=== PATIENT | male | born 1935 | race Caucasian/White ===

== ENCOUNTER → 2016-06-08 | Outpatient (CLI) | payer MEDICARE, OTHER ==
[~2016-06-08] MED LIST: AMLODIPINE BESYL5 MG PO; APRESOLINE25 MG PO; Augmentin Xr 101 TER PO; ELIQUIS2.5 M1 PO; ELIQUIS5 M1 PO; FLOMAX0.4 MG; FOLGARD TABLET1 EACH PO; FOLTANX TABLET1 EACH PO; Hydralazine Hyd25 MG PO; IMDUR SA30 MG PO; ISOSORBIDE DINI30 MG PO; K-TAB10 MEQ PO; LASIX40 MG PO; LEADER ASPIRIN81 MG PO; LEVOTHYROXINE0.05 MG PO; LISINOPRIL20 MG PO; LOPRESSOR50 M1 PO; MULTIPLE VITAMI1 CAP PO; OXYGEN NAS; SYNTHROID,LEVO75 MCG PO; TOPROL XL100 MG PO; Vicodin 5/500 505 MG PO; XALATAN 0.005%2.5 ML; XARE20MG PO; ZOFRAN4 MG PO
== END | disposition home or self-care (01) ==
LOC: RAD 15:26
DX: I50.22 Chronic systolic (congestive) heart failure (principal); I51.7 Cardiomegaly; J44.9 Chronic obstructive pulmonary disease, unspecified; R91.8 Other nonspecific abnormal finding of lung field; Z85.038 Personal history of other malignant neoplasm of large intestine; Z85.118 Personal history of other malignant neoplasm of bronchus and lung

== ENCOUNTER 2016-08-09 09:43 | Emergency (ER) | payer MEDICARE, OTHER ==
[~2016-08-09] VITALS: Ht 182.8 cm; Wt 73.9 kg
== END 2016-08-09 12:10 | disposition home or self-care (01) ==
LOC: ED 09:43
DX: R04.0 Epistaxis (principal); I99.8 Other disorder of circulatory system; I48.92 Unspecified atrial flutter; I48.91 Unspecified atrial fibrillation; Z79.899 Other long term (current) drug therapy

== ENCOUNTER → 2016-08-13 | Outpatient (CLI) | payer MEDICARE, OTHER ==
[2016-08-13 07:51] LABS: BASO % 0.4 % (0.0-1.0); EOS # 0.2 10*3/uL (0.0-0.4); EOS % 4.9 % (1.0-4.0); HEMATOCRIT 32.2 % (42.0-52.0); HEMOGLOBIN 10.3 g/dl (14.0-18.0); LYMPH # 0.8 10*3/uL (1.3-4.4); LYMPH % 16.6 % (27.0-41.0); MEAN CELL VOLUME 95.8 fl (80.0-94.0); MEAN CORPUSCULAR HGB 30.7 pg (27.0-31.0); MEAN PLATELET VOLUME 9.6 fl (9.6-12.3); MONO # 0.5 10*3/uL (0.1-1.0); MONO % 10.5 % (3.0-9.0); NEUT # 3.3 10*3/uL (2.3-7.9); NEUT % 67.2 % (47.0-73.0); PLATELET COUNT AUTOMATED 178 10*3/uL (130-400); RED BLOOD COUNT 3.36 10*6/uL (4.50-5.90); RED CELL DISTRI WIDTH 17.3 % (0-14.5); WHITE BLOOD COUNT 4.9 10*3/uL (4.8-10.8)
[2016-08-13 08:22] LABS: ALBUMIN 2.8 gm/dl (3.1-4.5); BILIRUBIN, TOTAL 0.6 mg/dl (0.2-1.0); POTASSIUM 4.7 mmol/L (3.5-5.1); TOTAL PROTEIN 8.2 gm/dL (6.4-8.2)
== END | disposition home or self-care (01) ==
LOC: LAB 01:00
PROVIDERS: Internal Medicine Hematology & Oncology
DX: C18.9 Malignant neoplasm of colon, unspecified (principal)

== ENCOUNTER → 2016-08-27 | Outpatient (CLI) | payer MEDICARE, OTHER ==
[2016-08-27 07:47] LABS: BASO % 0.6 % (0.0-1.0); EOS # 0.2 10*3/uL (0.0-0.4); EOS % 4.7 % (1.0-4.0); HEMATOCRIT 33.5 % (42.0-52.0); HEMOGLOBIN 10.8 g/dl (14.0-18.0); LYMPH # 0.9 10*3/uL (1.3-4.4); LYMPH % 26.7 % (27.0-41.0); MEAN CELL VOLUME 97.1 fl (80.0-94.0); MEAN CORPUSCULAR HGB 31.3 pg (27.0-31.0); MEAN CORPUSCULAR HGB CONC 32.2 g/dl (33.0-37.0); MEAN PLATELET VOLUME 9.6 fl (9.6-12.3); MONO # 0.3 10*3/uL (0.1-1.0); MONO % 9.5 % (3.0-9.0); NEUT % 58.2 % (47.0-73.0); PLATELET COUNT AUTOMATED 136 10*3/uL (130-400); RED BLOOD COUNT 3.45 10*6/uL (4.50-5.90); RED CELL DISTRI WIDTH 17.6 % (0-14.5); WHITE BLOOD COUNT 3.4 10*3/uL (4.8-10.8)
[2016-08-27 08:16] LABS: ALBUMIN 3.1 gm/dl (3.1-4.5); BILIRUBIN, TOTAL 0.5 mg/dl (0.2-1.0); POTASSIUM 4.4 mmol/L (3.5-5.1); TOTAL PROTEIN 8.3 gm/dL (6.4-8.2)
== END | disposition home or self-care (01) ==
LOC: LAB 03:46
PROVIDERS: Internal Medicine Hematology & Oncology
DX: C18.9 Malignant neoplasm of colon, unspecified (principal)

== ENCOUNTER → 2016-09-10 | Outpatient (CLI) | payer MEDICARE, OTHER ==
[2016-09-10 08:09] LABS: BASO % 0.4 % (0.0-1.0); EOS # 0.2 10*3/uL (0.0-0.4); EOS % 6.8 % (1.0-4.0); HEMATOCRIT 32.4 % (42.0-52.0); HEMOGLOBIN 10.3 g/dl (14.0-18.0); LYMPH # 0.7 10*3/uL (1.3-4.4); LYMPH % 26.5 % (27.0-41.0); MEAN CELL VOLUME 99.1 fl (80.0-94.0); MEAN CORPUSCULAR HGB 31.5 pg (27.0-31.0); MEAN CORPUSCULAR HGB CONC 31.8 g/dl (33.0-37.0); MEAN PLATELET VOLUME 10.3 fl (9.6-12.3); MONO # 0.3 10*3/uL (0.1-1.0); MONO % 9.3 % (3.0-9.0); NEUT # 1.6 10*3/uL (2.3-7.9); PLATELET COUNT AUTOMATED 120 10*3/uL (130-400); RED BLOOD COUNT 3.27 10*6/uL (4.50-5.90); RED CELL DISTRI WIDTH 16.6 % (0-14.5); WHITE BLOOD COUNT 2.8 10*3/uL (4.8-10.8)
[2016-09-10 08:28] LABS: BILIRUBIN, TOTAL 0.4 mg/dl (0.2-1.0); POTASSIUM 4.7 mmol/L (3.5-5.1); TOTAL PROTEIN 7.5 gm/dL (6.4-8.2)
== END | disposition home or self-care (01) ==
LOC: LAB 09-09 08:15
PROVIDERS: Internal Medicine Hematology & Oncology
DX: C18.9 Malignant neoplasm of colon, unspecified (principal)

== ENCOUNTER → 2016-10-29 | Outpatient (CLI) | payer MEDICARE, OTHER ==
[2016-10-29 08:04] LABS: BASO % 0.3 % (0.0-1.0); EOS # 0.2 10*3/uL (0.0-0.4); EOS % 6.1 % (1.0-4.0); HEMATOCRIT 32.7 % (42.0-52.0); HEMOGLOBIN 10.5 g/dl (14.0-18.0); LYMPH % 26.9 % (27.0-41.0); MEAN CELL VOLUME 98.8 fl (80.0-94.0); MEAN CORPUSCULAR HGB 31.7 pg (27.0-31.0); MEAN CORPUSCULAR HGB CONC 32.1 g/dl (33.0-37.0); MEAN PLATELET VOLUME 10.6 fl (9.6-12.3); MONO # 0.4 10*3/uL (0.1-1.0); MONO % 10.3 % (3.0-9.0); NEUT % 56.1 % (47.0-73.0); PLATELET COUNT AUTOMATED 166 10*3/uL (130-400); RED BLOOD COUNT 3.31 10*6/uL (4.50-5.90); RED CELL DISTRI WIDTH 14.9 % (0-14.5); WHITE BLOOD COUNT 3.6 10*3/uL (4.8-10.8)
[2016-10-29 08:30] LABS: ALBUMIN 3.1 gm/dl (3.1-4.5); BILIRUBIN, TOTAL 0.3 mg/dl (0.2-1.0); POTASSIUM 4.5 mmol/L (3.5-5.1); TOTAL PROTEIN 7.2 gm/dL (6.4-8.2)
== END | disposition home or self-care (01) ==
LOC: LAB 00:34
PROVIDERS: Internal Medicine Hematology & Oncology
DX: C18.9 Malignant neoplasm of colon, unspecified (principal)

== ENCOUNTER → 2016-11-12 | Outpatient (CLI) | payer MEDICARE, OTHER ==
[2016-11-12 07:34] LABS: BASO % 0.5 % (0.0-1.0); EOS # 0.3 10*3/uL (0.0-0.4); EOS % 7.1 % (1.0-4.0); HEMATOCRIT 33.1 % (42.0-52.0); HEMOGLOBIN 10.6 g/dl (14.0-18.0); LYMPH % 25.4 % (27.0-41.0); MEAN CELL VOLUME 98.2 fl (80.0-94.0); MEAN CORPUSCULAR HGB 31.5 pg (27.0-31.0); MEAN PLATELET VOLUME 9.8 fl (9.6-12.3); MONO # 0.4 10*3/uL (0.1-1.0); MONO % 9.2 % (3.0-9.0); NEUT # 2.2 10*3/uL (2.3-7.9); NEUT % 57.3 % (47.0-73.0); PLATELET COUNT AUTOMATED 179 10*3/uL (130-400); RED BLOOD COUNT 3.37 10*6/uL (4.50-5.90); RED CELL DISTRI WIDTH 15.5 % (0-14.5); WHITE BLOOD COUNT 3.8 10*3/uL (4.8-10.8)
[2016-11-12 08:09] LABS: ALBUMIN 3.2 gm/dl (3.1-4.5); BILIRUBIN, TOTAL 0.4 mg/dl (0.2-1.0); POTASSIUM 4.7 mmol/L (3.5-5.1); TOTAL PROTEIN 7.1 gm/dL (6.4-8.2)
== END | disposition home or self-care (01) ==
LOC: LAB 02:01
PROVIDERS: Internal Medicine Hematology & Oncology
DX: C18.9 Malignant neoplasm of colon, unspecified (principal)

== ENCOUNTER → 2016-11-26 | Outpatient (CLI) | payer MEDICARE, OTHER ==
[2016-11-26 08:05] LABS: BASO % 0.3 % (0.0-1.0); EOS # 0.3 10*3/uL (0.0-0.4); EOS % 6.7 % (1.0-4.0); HEMATOCRIT 33.5 % (42.0-52.0); HEMOGLOBIN 10.6 g/dl (14.0-18.0); LYMPH # 0.8 10*3/uL (1.3-4.4); LYMPH % 22.3 % (27.0-41.0); MEAN CELL VOLUME 97.7 fl (80.0-94.0); MEAN CORPUSCULAR HGB 30.9 pg (27.0-31.0); MEAN CORPUSCULAR HGB CONC 31.6 g/dl (33.0-37.0); MONO # 0.4 10*3/uL (0.1-1.0); NEUT # 2.2 10*3/uL (2.3-7.9); NEUT % 59.4 % (47.0-73.0); PLATELET COUNT AUTOMATED 194 10*3/uL (130-400); RED BLOOD COUNT 3.43 10*6/uL (4.50-5.90); RED CELL DISTRI WIDTH 15.5 % (0-14.5); WHITE BLOOD COUNT 3.7 10*3/uL (4.8-10.8)
[2016-11-26 08:25] LABS: ALBUMIN 3.1 gm/dl (3.1-4.5); BILIRUBIN, TOTAL 0.4 mg/dl (0.2-1.0); POTASSIUM 4.7 mmol/L (3.5-5.1); TOTAL PROTEIN 7.1 gm/dL (6.4-8.2)
== END | disposition home or self-care (01) ==
LOC: LAB 03:01
PROVIDERS: Internal Medicine Hematology & Oncology
DX: C18.9 Malignant neoplasm of colon, unspecified (principal)

== ENCOUNTER → 2016-12-10 | Outpatient (CLI) | payer MEDICARE, OTHER ==
[2016-12-10 07:36] LABS: BASO % 0.5 % (0.0-1.0); EOS # 0.3 10*3/uL (0.0-0.4); HEMATOCRIT 31.9 % (42.0-52.0); HEMOGLOBIN 10.1 g/dl (14.0-18.0); LYMPH # 0.7 10*3/uL (1.3-4.4); LYMPH % 18.3 % (27.0-41.0); MEAN CELL VOLUME 96.7 fl (80.0-94.0); MEAN CORPUSCULAR HGB 30.6 pg (27.0-31.0); MEAN CORPUSCULAR HGB CONC 31.7 g/dl (33.0-37.0); MEAN PLATELET VOLUME 9.2 fl (9.6-12.3); MONO # 0.4 10*3/uL (0.1-1.0); MONO % 9.7 % (3.0-9.0); NEUT # 2.4 10*3/uL (2.3-7.9); NEUT % 64.2 % (47.0-73.0); PLATELET COUNT AUTOMATED 177 10*3/uL (130-400); RED CELL DISTRI WIDTH 15.4 % (0-14.5); WHITE BLOOD COUNT 3.7 10*3/uL (4.8-10.8)
[2016-12-10 08:05] LABS: ALBUMIN 3.1 gm/dl (3.1-4.5); BILIRUBIN, TOTAL 0.4 mg/dl (0.2-1.0); TOTAL PROTEIN 6.9 gm/dL (6.4-8.2)
== END | disposition home or self-care (01) ==
LOC: LAB 02:10
PROVIDERS: Internal Medicine Hematology & Oncology
DX: C18.9 Malignant neoplasm of colon, unspecified (principal)

== ENCOUNTER → 2017-01-28 | Outpatient (CLI) | payer MEDICARE, OTHER ==
[2017-01-28 07:57] LABS: BASO % 1.1 % (0.0-1.0); EOS # 0.3 10*3/uL (0.0-0.4); EOS % 9.1 % (1.0-4.0); HEMATOCRIT 34.6 % (42.0-52.0); HEMOGLOBIN 10.9 g/dl (14.0-18.0); LYMPH # 0.9 10*3/uL (1.3-4.4); LYMPH % 25.4 % (27.0-41.0); MEAN CELL VOLUME 96.1 fl (80.0-94.0); MEAN CORPUSCULAR HGB 30.3 pg (27.0-31.0); MEAN CORPUSCULAR HGB CONC 31.5 g/dl (33.0-37.0); MEAN PLATELET VOLUME 9.9 fl (9.6-12.3); MONO # 0.5 10*3/uL (0.1-1.0); MONO % 14.6 % (3.0-9.0); NEUT # 1.7 10*3/uL (2.3-7.9); NEUT % 49.5 % (47.0-73.0); PLATELET COUNT AUTOMATED 181 10*3/uL (130-400); RED CELL DISTRI WIDTH 17.7 % (0-14.5); WHITE BLOOD COUNT 3.5 10*3/uL (4.8-10.8)
[2017-01-28 08:24] LABS: ALBUMIN 3.4 gm/dl (3.1-4.5); ALKALINE PHOSPHATASE 128 U/L (45-117); BUN 21 mg/dl (7-24); CHLORIDE 104 mmol/L (98-107); CREATININE 1.24 mg/dL (0.70-1.30); POTASSIUM 4.5 mmol/L (3.5-5.1); SGOT/AST 33 IU/L (3-35); SGPT/ALT 25 U/L (12-78); SODIUM 138 mmol/L (136-145); TOTAL PROTEIN 7.1 gm/dL (6.4-8.2)
== END | disposition home or self-care (01) ==
LOC: LAB 02:41
PROVIDERS: Internal Medicine Hematology & Oncology
DX: C18.9 Malignant neoplasm of colon, unspecified (principal)

== ENCOUNTER → 2017-02-11 | Outpatient (CLI) | payer MEDICARE, OTHER ==
[2017-02-11 07:25] LABS: BASO % 0.6 % (0.0-1.0); EOS # 0.2 10*3/uL (0.0-0.4); EOS % 6.2 % (1.0-4.0); HEMATOCRIT 33.3 % (42.0-52.0); HEMOGLOBIN 10.4 g/dl (14.0-18.0); LYMPH # 0.7 10*3/uL (1.3-4.4); LYMPH % 21.5 % (27.0-41.0); MEAN CELL VOLUME 96.8 fl (80.0-94.0); MEAN CORPUSCULAR HGB 30.2 pg (27.0-31.0); MEAN CORPUSCULAR HGB CONC 31.2 g/dl (33.0-37.0); MEAN PLATELET VOLUME 9.7 fl (9.6-12.3); MONO # 0.2 10*3/uL (0.1-1.0); MONO % 6.2 % (3.0-9.0); NEUT # 2.2 10*3/uL (2.3-7.9); NEUT % 65.2 % (47.0-73.0); PLATELET COUNT AUTOMATED 145 10*3/uL (130-400); RED BLOOD COUNT 3.44 10*6/uL (4.50-5.90); RED CELL DISTRI WIDTH 17.5 % (0-14.5); WHITE BLOOD COUNT 3.4 10*3/uL (4.8-10.8)
[2017-02-11 08:01] LABS: ALBUMIN 3.2 gm/dl (3.1-4.5); ALKALINE PHOSPHATASE 117 U/L (45-117); BUN 22 mg/dl (7-24); CHLORIDE 103 mmol/L (98-107); CREATININE 1.32 mg/dL (0.70-1.30); POTASSIUM 4.5 mmol/L (3.5-5.1); SGOT/AST 25 IU/L (3-35); SGPT/ALT 23 U/L (12-78); SODIUM 136 mmol/L (136-145)
== END | disposition home or self-care (01) ==
LOC: LAB 01:55
PROVIDERS: Internal Medicine Hematology & Oncology
DX: C18.9 Malignant neoplasm of colon, unspecified (principal)

== ENCOUNTER → 2017-02-25 | Outpatient (CLI) | payer MEDICARE, OTHER ==
[2017-02-25 07:30] LABS: BASO % 0.8 % (0.0-1.0); EOS # 0.2 10*3/uL (0.0-0.4); EOS % 4.9 % (1.0-4.0); HEMATOCRIT 31.7 % (42.0-52.0); HEMOGLOBIN 10.3 g/dl (14.0-18.0); LYMPH # 0.9 10*3/uL (1.3-4.4); MEAN CELL VOLUME 96.1 fl (80.0-94.0); MEAN CORPUSCULAR HGB 31.2 pg (27.0-31.0); MEAN CORPUSCULAR HGB CONC 32.5 g/dl (33.0-37.0); MEAN PLATELET VOLUME 9.9 fl (9.6-12.3); MONO # 0.3 10*3/uL (0.1-1.0); MONO % 8.3 % (3.0-9.0); NEUT # 2.5 10*3/uL (2.3-7.9); NEUT % 63.7 % (47.0-73.0); PLATELET COUNT AUTOMATED 161 10*3/uL (130-400); RED CELL DISTRI WIDTH 17.8 % (0-14.5); WHITE BLOOD COUNT 3.9 10*3/uL (4.8-10.8)
[2017-02-25 07:58] LABS: ALBUMIN 3.3 gm/dl (3.1-4.5); ALKALINE PHOSPHATASE 101 U/L (45-117); BUN 22 mg/dl (7-24); CHLORIDE 101 mmol/L (98-107); CREATININE 1.37 mg/dL (0.70-1.30); POTASSIUM 4.3 mmol/L (3.5-5.1); SGOT/AST 24 IU/L (3-35); SGPT/ALT 18 U/L (12-78); SODIUM 135 mmol/L (136-145); TOTAL PROTEIN 6.7 gm/dL (6.4-8.2)
== END | disposition home or self-care (01) ==
LOC: LAB 01:02
PROVIDERS: Internal Medicine Hematology & Oncology
DX: C18.9 Malignant neoplasm of colon, unspecified (principal)

== ENCOUNTER → 2017-03-11 | Outpatient (CLI) | payer MEDICARE, OTHER ==
[2017-03-11 07:54] LABS: BASO % 0.6 % (0.0-1.0); EOS # 0.2 10*3/uL (0.0-0.4); EOS % 5.4 % (1.0-4.0); HEMOGLOBIN 10.5 g/dl (14.0-18.0); LYMPH # 0.7 10*3/uL (1.3-4.4); LYMPH % 21.7 % (27.0-41.0); MEAN CELL VOLUME 95.2 fl (80.0-94.0); MEAN CORPUSCULAR HGB 29.4 pg (27.0-31.0); MEAN CORPUSCULAR HGB CONC 30.9 g/dl (33.0-37.0); MEAN PLATELET VOLUME 10.1 fl (9.6-12.3); MONO # 0.3 10*3/uL (0.1-1.0); NEUT # 2.2 10*3/uL (2.3-7.9); PLATELET COUNT AUTOMATED 168 10*3/uL (130-400); RED BLOOD COUNT 3.57 10*6/uL (4.50-5.90); WHITE BLOOD COUNT 3.4 10*3/uL (4.8-10.8)
== END | disposition home or self-care (01) ==
LOC: LAB 01:02
PROVIDERS: Internal Medicine Hematology & Oncology
DX: C18.9 Malignant neoplasm of colon, unspecified (principal)

== ENCOUNTER → 2017-03-25 | Outpatient (CLI) | payer MEDICARE, OTHER ==
[2017-03-25 08:38] LABS: BASO % 0.6 % (0.0-1.0); EOS # 0.3 10*3/uL (0.0-0.4); HEMATOCRIT 34.4 % (42.0-52.0); HEMOGLOBIN 11.1 g/dl (14.0-18.0); LYMPH % 29.4 % (27.0-41.0); MEAN CELL VOLUME 95.6 fl (80.0-94.0); MEAN CORPUSCULAR HGB 30.8 pg (27.0-31.0); MEAN CORPUSCULAR HGB CONC 32.3 g/dl (33.0-37.0); MEAN PLATELET VOLUME 10.6 fl (9.6-12.3); MONO # 0.3 10*3/uL (0.1-1.0); MONO % 9.6 % (3.0-9.0); NEUT # 1.7 10*3/uL (2.3-7.9); NEUT % 51.8 % (47.0-73.0); PLATELET COUNT AUTOMATED 180 10*3/uL (130-400); RED CELL DISTRI WIDTH 17.5 % (0-14.5); WHITE BLOOD COUNT 3.2 10*3/uL (4.8-10.8)
[2017-03-25 09:09] LABS: ALBUMIN 3.5 gm/dl (3.1-4.5); CREATININE 1.87 mg/dL (0.70-1.30); POTASSIUM 4.6 mmol/L (3.5-5.1)
== END ==
LOC: LAB 00:42
PROVIDERS: Internal Medicine Hematology & Oncology
DX: C18.9 Malignant neoplasm of colon, unspecified (principal)

== ENCOUNTER → 2017-04-22 | Outpatient (CLI) | payer MEDICARE, OTHER ==
[2017-04-22 07:26] LABS: BASO % 0.9 % (0.0-1.0); EOS # 0.5 10*3/uL (0.0-0.4); EOS % 10.3 % (1.0-4.0); HEMOGLOBIN 11.3 g/dl (14.0-18.0); LYMPH # 1.1 10*3/uL (1.3-4.4); LYMPH % 23.1 % (27.0-41.0); MEAN CELL VOLUME 96.2 fl (80.0-94.0); MEAN CORPUSCULAR HGB CONC 32.3 g/dl (33.0-37.0); MEAN PLATELET VOLUME 9.8 fl (9.6-12.3); MONO # 0.6 10*3/uL (0.1-1.0); MONO % 13.8 % (3.0-9.0); NEUT # 2.4 10*3/uL (2.3-7.9); NEUT % 51.7 % (47.0-73.0); PLATELET COUNT AUTOMATED 188 10*3/uL (130-400); RED BLOOD COUNT 3.64 10*6/uL (4.50-5.90); RED CELL DISTRI WIDTH 16.6 % (0-14.5); WHITE BLOOD COUNT 4.6 10*3/uL (4.8-10.8)
[2017-04-22 07:59] LABS: ALBUMIN 3.5 gm/dl (3.1-4.5); CREATININE 1.59 mg/dL (0.70-1.30); POTASSIUM 4.6 mmol/L (3.5-5.1); TOTAL PROTEIN 7.2 gm/dL (6.4-8.2)
== END | disposition home or self-care (01) ==
LOC: LAB 00:43
PROVIDERS: Internal Medicine Hematology & Oncology
DX: C18.9 Malignant neoplasm of colon, unspecified (principal)

== ENCOUNTER → 2017-05-06 | Outpatient (CLI) | payer MEDICARE, OTHER ==
[2017-05-06 08:23] LABS: BASO % 0.7 % (0.0-1.0); EOS # 0.2 10*3/uL (0.0-0.4); HEMATOCRIT 34.4 % (42.0-52.0); LYMPH # 0.9 10*3/uL (1.3-4.4); LYMPH % 21.3 % (27.0-41.0); MEAN CELL VOLUME 96.9 fl (80.0-94.0); MEAN PLATELET VOLUME 10.1 fl (9.6-12.3); MONO # 0.4 10*3/uL (0.1-1.0); NEUT # 2.7 10*3/uL (2.3-7.9); NEUT % 63.8 % (47.0-73.0); PLATELET COUNT AUTOMATED 195 10*3/uL (130-400); RED BLOOD COUNT 3.55 10*6/uL (4.50-5.90); RED CELL DISTRI WIDTH 16.1 % (0-14.5); WHITE BLOOD COUNT 4.2 10*3/uL (4.8-10.8)
== END ==
LOC: LAB 02:33
PROVIDERS: Internal Medicine Hematology & Oncology
DX: C18.9 Malignant neoplasm of colon, unspecified (principal)

== ENCOUNTER → 2017-06-03 | Outpatient (CLI) | payer MEDICARE, OTHER ==
[2017-06-03 07:45] LABS: BASO % 0.3 % (0.0-1.0); EOS # 0.3 10*3/uL (0.0-0.4); HEMATOCRIT 34.1 % (42.0-52.0); HEMOGLOBIN 10.9 g/dl (14.0-18.0); LYMPH # 0.8 10*3/uL (1.3-4.4); LYMPH % 19.8 % (27.0-41.0); MEAN CELL VOLUME 95.8 fl (80.0-94.0); MEAN CORPUSCULAR HGB 30.6 pg (27.0-31.0); MONO # 0.2 10*3/uL (0.1-1.0); MONO % 4.8 % (3.0-9.0); NEUT # 2.7 10*3/uL (2.3-7.9); NEUT % 67.8 % (47.0-73.0); PLATELET COUNT AUTOMATED 166 10*3/uL (130-400); RED BLOOD COUNT 3.56 10*6/uL (4.50-5.90); RED CELL DISTRI WIDTH 15.3 % (0-14.5)
[2017-06-03 08:12] LABS: ALBUMIN 3.2 gm/dl (3.1-4.5); POTASSIUM 4.5 mmol/L (3.5-5.1)
[2017-06-03 08:15] LABS: CREATININE 1.44 mg/dL (0.70-1.30); TOTAL PROTEIN 6.9 gm/dL (6.4-8.2)
== END | disposition home or self-care (01) ==
LOC: LAB 02:13
PROVIDERS: Internal Medicine Hematology & Oncology
DX: C18.9 Malignant neoplasm of colon, unspecified (principal)

== ENCOUNTER → 2017-06-17 | Outpatient (CLI) | payer MEDICARE, OTHER ==
[2017-06-17 07:36] LABS: BASO % 0.5 % (0.0-1.0); EOS # 0.2 10*3/uL (0.0-0.4); EOS % 5.5 % (1.0-4.0); HEMOGLOBIN 10.9 g/dl (14.0-18.0); LYMPH # 0.8 10*3/uL (1.3-4.4); LYMPH % 20.8 % (27.0-41.0); MEAN CELL VOLUME 94.3 fl (80.0-94.0); MEAN CORPUSCULAR HGB 29.4 pg (27.0-31.0); MEAN CORPUSCULAR HGB CONC 31.1 g/dl (33.0-37.0); MEAN PLATELET VOLUME 9.6 fl (9.6-12.3); MONO # 0.4 10*3/uL (0.1-1.0); MONO % 8.8 % (3.0-9.0); NEUT # 2.5 10*3/uL (2.3-7.9); NEUT % 63.6 % (47.0-73.0); PLATELET COUNT AUTOMATED 208 10*3/uL (130-400); RED BLOOD COUNT 3.71 10*6/uL (4.50-5.90); RED CELL DISTRI WIDTH 15.4 % (0-14.5)
[2017-06-17 08:12] LABS: ALBUMIN 3.3 gm/dl (3.1-4.5); CREATININE 1.44 mg/dL (0.70-1.30); POTASSIUM 4.6 mmol/L (3.5-5.1); TOTAL PROTEIN 7.2 gm/dL (6.4-8.2)
== END | disposition home or self-care (01) ==
LOC: LAB 01:00
PROVIDERS: Internal Medicine Hematology & Oncology
DX: C18.9 Malignant neoplasm of colon, unspecified (principal)

== ENCOUNTER → 2017-07-01 | Outpatient (CLI) | payer MEDICARE, OTHER ==
[2017-07-01 08:33] LABS: BASO % 0.5 % (0.0-1.0); EOS # 0.2 10*3/uL (0.0-0.4); EOS % 5.3 % (1.0-4.0); HEMATOCRIT 36.5 % (42.0-52.0); HEMOGLOBIN 11.4 g/dl (14.0-18.0); LYMPH # 0.9 10*3/uL (1.3-4.4); LYMPH % 22.1 % (27.0-41.0); MEAN CELL VOLUME 94.1 fl (80.0-94.0); MEAN CORPUSCULAR HGB 29.4 pg (27.0-31.0); MEAN CORPUSCULAR HGB CONC 31.2 g/dl (33.0-37.0); MEAN PLATELET VOLUME 9.7 fl (9.6-12.3); MONO # 0.4 10*3/uL (0.1-1.0); MONO % 9.2 % (3.0-9.0); NEUT # 2.6 10*3/uL (2.3-7.9); NEUT % 62.7 % (47.0-73.0); PLATELET COUNT AUTOMATED 173 10*3/uL (130-400); RED BLOOD COUNT 3.88 10*6/uL (4.50-5.90); RED CELL DISTRI WIDTH 15.9 % (0-14.5); WHITE BLOOD COUNT 4.1 10*3/uL (4.8-10.8)
[2017-07-01 09:00] LABS: ALBUMIN 3.3 gm/dl (3.1-4.5); CREATININE 1.53 mg/dL (0.70-1.30); POTASSIUM 4.7 mmol/L (3.5-5.1); TOTAL PROTEIN 7.2 gm/dL (6.4-8.2)
== END | disposition home or self-care (01) ==
LOC: LAB 02:22
PROVIDERS: Internal Medicine Hematology & Oncology
DX: C18.9 Malignant neoplasm of colon, unspecified (principal)

== ENCOUNTER → 2017-07-15 | Outpatient (CLI) | payer MEDICARE, OTHER ==
[2017-07-15 07:19] LABS: BASO % 0.6 % (0.0-1.0); EOS # 0.3 10*3/uL (0.0-0.4); EOS % 5.9 % (1.0-4.0); HEMATOCRIT 36.4 % (42.0-52.0); HEMOGLOBIN 11.4 g/dl (14.0-18.0); LYMPH % 19.3 % (27.0-41.0); MEAN CELL VOLUME 93.8 fl (80.0-94.0); MEAN CORPUSCULAR HGB 29.4 pg (27.0-31.0); MEAN CORPUSCULAR HGB CONC 31.3 g/dl (33.0-37.0); MEAN PLATELET VOLUME 9.1 fl (9.6-12.3); MONO # 0.4 10*3/uL (0.1-1.0); NEUT # 3.4 10*3/uL (2.3-7.9); NEUT % 65.8 % (47.0-73.0); PLATELET COUNT AUTOMATED 186 10*3/uL (130-400); RED BLOOD COUNT 3.88 10*6/uL (4.50-5.90); RED CELL DISTRI WIDTH 15.9 % (0-14.5); WHITE BLOOD COUNT 5.1 10*3/uL (4.8-10.8)
== END | disposition home or self-care (01) ==
LOC: LAB 03:36
PROVIDERS: Internal Medicine Hematology & Oncology
DX: C18.9 Malignant neoplasm of colon, unspecified (principal)

== ENCOUNTER → 2017-07-29 | Outpatient (CLI) | payer MEDICARE, OTHER ==
[2017-07-29 07:15] LABS: BASO % 0.4 % (0.0-1.0); EOS # 0.2 10*3/uL (0.0-0.4); EOS % 4.5 % (1.0-4.0); HEMATOCRIT 35.7 % (42.0-52.0); HEMOGLOBIN 11.2 g/dl (14.0-18.0); LYMPH # 0.6 10*3/uL (1.3-4.4); LYMPH % 11.3 % (27.0-41.0); MEAN CORPUSCULAR HGB 29.2 pg (27.0-31.0); MEAN CORPUSCULAR HGB CONC 31.4 g/dl (33.0-37.0); MEAN PLATELET VOLUME 9.5 fl (9.6-12.3); MONO # 0.3 10*3/uL (0.1-1.0); MONO % 5.6 % (3.0-9.0); NEUT % 77.8 % (47.0-73.0); PLATELET COUNT AUTOMATED 189 10*3/uL (130-400); RED BLOOD COUNT 3.84 10*6/uL (4.50-5.90); WHITE BLOOD COUNT 5.1 10*3/uL (4.8-10.8)
[2017-07-29 07:44] LABS: ALBUMIN 3.1 gm/dl (3.1-4.5); ALKALINE PHOSPHATASE 109 U/L (45-117); BUN 20 mg/dl (7-24); CHLORIDE 101 mmol/L (98-107); CREATININE 1.35 mg/dL (0.70-1.30); POTASSIUM 4.6 mmol/L (3.5-5.1); SGOT/AST 20 IU/L (3-35); SGPT/ALT 21 U/L (12-78); SODIUM 137 mmol/L (136-145)
== END | disposition home or self-care (01) ==
LOC: LAB 01:24
PROVIDERS: Internal Medicine Hematology & Oncology
DX: C18.9 Malignant neoplasm of colon, unspecified (principal)

== ENCOUNTER 2017-08-05 19:51 | Inpatient (IN) | payer MEDICARE, OTHER ==
[~2017-08-05] VITALS: Ht 182.8 cm; Wt 81.6 kg
--- NOTE | ~2017-08-05 | PR ---
[place], [place] PROGRESS NOTE NAME: SKYLAR RANDHAWA [facility] #: [id number] UNIT #: [id number] ROOM: 426 DOCTOR: DENI RODRIGUEZ MD,GODWIN BIRTHDATE: [birth year] DOS: 08/07/2017 PULMONARY PROGRESS NOTE SUBJECTIVE: He has been noted comfortable at this time, resting on the bed. Denies any acute shortness of breath. There were no symptoms of coughing, sputum expectoration. Chest pain reported. General weakness and fatigue were noted partially improved. Denies symptoms of hemoptysis, abdominal pain. Denies symptoms of nausea, vomiting, diarrhea, or abdominal pain. Denies symptoms of hematuria. The remaining systems were reviewed. They were noted all negative. OBJECTIVE: VITAL SIGNS: For the patient, which has been recorded showed the temperature was normal, respiratory rate 18, heart rate of 78, blood pressure 137/87. Pulse oxygen saturation on room air is 92%. HEENT: Head was atraumatic. Eyes nonicterus. NECK: Supple. CARDIOVASCULAR: S1, S2 is audible. LUNGS: Decreased breaths are noted mild bilaterally. There were no wheeze or crackle. ABDOMEN: Noted soft. Bowel sounds present. EXTREMITIES: Noted without any acute edema. SKIN: No lesions or rashes. MUSCULOSKELETAL: Without any deformity. CENTRAL NERVOUS SYSTEM: Intact. There were no focal deficits. Cranial nerves 2-12 intact. LABORATORY DATA: CBC this morning, WBC of 3.5, hemoglobin 10.8, hematocrit 30.2, platelet count of 25,000. BMP this morning was noted with sodium of 132, otherwise normal. The CT scan of the chest that I ordered yesterday, was personally reviewed, shows multiple nodules of various sizes noted in the lungs bilaterally as well as a confluent nodule with a mass lesion, and pleural base in the right lower lobe as well. The blood culture on 08/05/2017 showed no bacterial growth. IMPRESSION: 1. General weakness, fatigue. 2. Possibility strongly for the metastatic malignancy advanced with previous known history of rectal cancer is very likely rather than acute infection at this present time. Possible septic emboli has not been noted likely with current solid nodule and known history of malignancy and random distribution. The area of mass lesion in the right lower lobe might be representing as a confluent nodule with malignancy. 3. Leukopenia related to the chemotherapy being administered for the metastatic cancer of the colon. PLAN OF TREATMENT: Based on clinical assessment and negative culture, antibiotic spectrum will be changed. Discontinue the vancomycin, Zosyn and only antibiotic might be considered to be continued as Levaquin. Other supportive [place], [place] PROGRESS NOTE NAME: SKYLAR RANDHAWA UNIT #: [id number] ROOM: 426 DOCTOR: GODWIN HOSKINS MD BIRTHDATE: [birth year] therapy, plan of management, care plan and other treatment and therapies. Overall prognosis is noted extremely poor at this time. Current finding will be discussed with the patient's family members as well. Overall prognosis is considered poor. If the patient's family members would consider further assessment, certainly a CT-guided needle aspiration biopsy of the right lower lung mass could be considered. In the meantime, continue physical therapy outpatient as per the supportive plan of management and care plan. GODWIN CHEEMA MD CM:PNTRANS [id number] GODWIN RODRIGUEZ MD 08/08/17 0544 interface
--- NOTE | ~2017-08-05 | PR ---
[place], [place] PROGRESS NOTE [id number] UN[facility] #: [id number] ROOM: 426 DOCTOR: DENI RODRIGUEZ MD,GODWIN BIRTHDATE: [birth year] DOS: 08/08/2017 SUBJECTIVE: He has been noted comfortable at this time, resting comfortably in the bed, was not reported any symptoms of chest pain or abdominal pain. He was noted small laceration on the bridge of the nose without any active bleeding, some crusted blood was noted. He denies any symptoms of coughing, sputum expectoration, and general weakness nor fatigue was noted. OBJECTIVE: VITAL SIGNS: Normal temperature, respiratory rate 20, heart rate 75, blood pressure 154/91, pulse oxygen saturation on room air 93% saturation. HEENT: Examination shows head was atraumatic. Eyes nonicterus. NECK: Supple. CARDIOVASCULAR: S1, S2 heard in the lung. Decreased breath sounds in the right lower lung. ABDOMEN: Soft and obese. EXTREMITIES: Without any acute edema. LABORATORY DATA: CBC: WBC count 3.0, hemoglobin 10.4, and platelet count were normal. BMP this morning, BUN normal, creatinine normal, and sodium 134. Blood culture, no bacterial growths. IMPRESSION: The patient with a stable respiratory status was noted at the present time with a metastatic malignancy from rectal cancer to the lungs with enlarging and multiple other nodules. PLAN OF TREATMENT: No changes from the pulmonary standpoint. Physical therapy and occupation therapy. Usual care, other supportive plan of management. Leukopenia related chemotherapy managed by Dr. Marie. GODWIN CHEEMA MD CM:PNTRANS 51 GODWIN RODRIGUEZ MD 08/11/17 0847 interface
--- NOTE | ~2017-08-05 | EKG ---
[place], [place] ELECTROCARDIOGRAM REPORT NAME: SKYLAR RANDHAWA UNIT #: [id number] ROOM: 426 DOCTOR: DENI RODRIGUEZ MD,GODWIN BIRTHDATE: [birth year] DOS: 08/05/2017 Electrocardiogram done on 08/05/2017 at 2100 hours. Normal sinus rhythm. Heart rate of 83 beats per minute. There were no changes for ischemia or arrhythmias. EKG considered normal. GODWIN CHEEMA MD CM:EKGRPT:ELECTROCARDIOGRAM REPORT [id number] GODWIN RODRIGUEZ MD
--- NOTE | ~2017-08-05 | CON ---
[place], [place] REPORT OF CONSULTATION NAME: SKYLAR RANDHAWA [facility] #: [id number] UNIT #: [id number] ROOM: 426 DOCTOR: DENI RODRIGUEZ MDGODWIN BIRTHDATE: [birth year] DOS: 08/06/2017 PULMONARY CONSULTATION EVALUATION AND MANAGEMENT CONSULTATION REQUESTED BY: Hospitalist service. REASON FOR CONSULTATION: For assessment of pneumonia. HISTORY OF PRESENT ILLNESS: An 82-year-old white male who has been known with history of metastatic rectal cancer. The patient's different parts of the body including the pulmonary nodules. The patient has been treated with chemotherapy underwent previous surgical intervention at [facility] several years ago. He was brought to the hospital by the family members. The patient did collapse to the floor because of the weakness in lower extremities. The patient stated the symptoms of weakness has been occurring for the past couple of days. He denies symptoms of chest pain. Denies any symptoms of coughing or any sputum expectoration or hemoptysis. REVIEW OF SYSTEMS: CONSTITUTIONAL: Fatigue and tiredness was noted without any symptoms of fever or chills. EYES: Denies any burning, redness, or tenderness. EAR, NOSE, AND THROAT: Denies sore throat, hoarseness, otalgia, postnasal drainage or epistaxis. CARDIOVASCULAR: Denies anginal pain, edema or pain of the lower extremity. GASTROINTESTINAL: No dysphagia, nausea, vomiting, diarrhea, abdominal pain, hematemesis, melena, or hematochezia. SKIN: Denies abnormal lesions or rashes. CENTRAL NERVOUS SYSTEM: Denies dizziness, headache, diplopia, syncopal episodes. Remaining systems were reviewed with the patient, they were noted all negative. PAST MEDICAL HISTORY: 1. The patient was known with history of atrial fibrillation and atrial flutter. 2. 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 3. History of thrombophlebitis and MRSA infection. 4. [id number]-yk-swbwlusl obesity history as well. PAST SURGICAL HISTORY: 1. Bilateral cataract extraction with lens implantation. 2. AP resection of the patient for the cancer of the colon. 2. Removal of the infection thrombophlebitis of left upper extremity. SOCIAL HISTORY: The patient is and lives at home. Denies history of alcohol use, illicit drug use. FAMILY HISTORY: Father at age of 76 years of unknown cancer. Mother [place], [place] REPORT OF CONSULTATION NAME: SKYLAR RANDHAWA UNIT #: [id number] ROOM: 426 DOCTOR: DENI RODRIGUEZ MD,GODWIN BIRTHDATE: [birth year] at age of [age] years old from unknown medical illnesses. CURRENT MEDICATIONS: Administered for the patient was noted as use of levothyroxine, aspirin, gabapentin, Imdur, metoprolol succinate, hydralazine, IV vancomycin, Levaquin and Zosyn. DRUG ALLERGIES: No known drug allergies. PHYSICAL EXAMINATION: GENERAL: An 82-year-old male who has been currently resting comfortably on the bed without any acute distress. Height of 6 feet, weight of 284 pounds, BMI 27.7. VITAL SIGNS: For the patient which has been recorded showed temperature normal since admission respiratory 15-20, heart rate of 78-80, blood pressure 151/83-127/77, pulse oxygen saturation for the patient 3 liters 98% saturation. HEENT: Examination shows head was atraumatic. Eyes nonicterus. NECK: Supple. CARDIOVASCULAR: S1, S2 audible. LUNGS: Without any crackles, rhonchi, or wheezing. Poor air entry of the lung were noted bilaterally. ABDOMEN: Soft with mild obesity. Bowel sounds present without any tenderness. CENTRAL NERVOUS SYSTEM : Cranial nerves 2-12 intact. MUSCULOSKELETAL: Without any acute deformities. SKIN: No abnormal lesions or rashes. LABORATORY DATA: Lactic acid of 08/05/2017 was noted as normal. PT/INR was noted as normal. CBC of the patient on 08/05/2017, WBC count 3.2, hemoglobin 10.6, hematocrit 32.5, platelet count 223,000. CMP on 08/05/2017, BUN 31, creatinine 1.41, glucose 122. Sodium 133. Remaining electrolytes grossly normal. CT scan of the head for the patient without contrast. The patient on 08/05/2017 shows chronic changes without any acute intracranial abnormalities. CBC of the patient this morning WBC count 3.8, hemoglobin 9.4, hematocrit 29, platelet count 185,000. Troponin 3 sets normal yesterday and this morning. BMP today: BUN 30, creatinine 1.32. Sodium 132. The chest x-ray of patient shows evidence of nodular infiltration, which was noted predominantly in the lower portion of the lungs, greater on the right than the left side. There was no pleural fluid. Heart size was noted as normal. IMPRESSION: 1. Metastatic malignancy of the patient, which are noted from the colon cancer currently admitted to the hospital. General weakness, etiology is unclear. 2. Leukopenia for this patient and anemia related to the chemotherapy underlying malignancy as well combination. General weakness for the patient noted. There were no signs of active sepsis or pneumonia early suspected with the clinical history. 3. The patient was also known with past history of atrial fibrillation and atrial flutter as well, which are noted well controlled. PLAN OF MANAGEMENT: The CT scan of the chest will be mandatory for the patient further assessment. After review of the CT scan of the chest, the patient's [place], [place] REPORT OF CONSULTATION NAME: SKYLAR RANDHAWA UNIT #: [id number] ROOM: 426 DOCTOR: GODWIN HOSKINS MD BIRTHDATE: [birth year] antibiotic will be discontinued if the finding was not suggestive of pneumonia. Other supportive therapy, plan of management to be continued as previously. Usual care, other supportive plan of management and care plan. Additional treatment changes will be recommended based on further available new data for this patient in the next few days and during hospitalization. Thank you for allowing me to participate in the care of this patient. GODWIN CHEEMA MD CM:CONSTR:REPORT OF CONSULTATION 1206 08/07/17 0023 interface
--- NOTE | ~2017-08-05 | CON ---
[place], [place] REPORT OF CONSULTATION NAME: SKYLAR RANDHAWA [facility] #: [id number] UNIT #: [id number] ROOM: 426 DOCTOR: MILA CHAVEZ MD BIRTHDATE: [birth year] DOS: 08/08/2017 HISTORY OF PRESENT ILLNESS: The patient is a pleasant 82-year-old gentleman with a history of metastatic colon cancer, presented to the ER because of generalized weakness and fall. As per the patient, he has been feeling progressively worsening weakness over the past couple of days and endoscopy on the day before the admission he felt because of generalized weakness, although he denies any dizziness, lightheadedness, chest pain, palpitation, nausea. Has a history of colon cancer and consulted for further evaluation and management. 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 PAST SURGICAL HISTORY: Cardiac cath, cataract surgery, colostomy, history of varicose veins. SOCIAL HISTORY: No smoking or drinking. Used to drink about 6-8 beers per day. No drug abuse and quit smoking about 40 years ago. FAMILY HISTORY: Father had emphysema secondary to smoking. at age 73 of colon cancer. Mother at 83 of heart disease. ALLERGIES: No allergies. MEDICATIONS: Aspirin, dicyclomine, Neurontin, hydralazine, isosorbide, levothyroxine, Toprol, Zofran. REVIEW OF SYSTEMS CONSTITUTIONAL: No chills. No fatigue. No fever. No loss of appetite. No night sweats. No weakness. No weight loss. HEENT: No trouble swallowing. No loss of smell. No loss of hearing. No double vision. No pain. No discharge. ENT AND RESPIRATORY: No wheeze. No sore throat. No change in voice. No hearing loss. No nose bleed. No cough. No trouble breathing through nose. No shortness of breath. No coughing up blood. No epistaxis. CARDIOVASCULAR: No chest pain. No dizziness. No irregular heartbeat. No leg edema. No pain in legs while walking. No palpitations. No shortness of breath. DERMATOLOGIC: No acne. No hives. No laceration. No mole. No rash. ENDOCRINE: No cold intolerance. No diabetes. No fatigue. No hot flashes. No polydipsia. No polyuria. No urinating frequently. No weight loss. HEMATOLOGIC AND LYMPH: No fatigue. No easy bruising. GASTROENTEROLOGIC: No change in bowel habits. No indigestion. No frequent bloating. No vomiting blood. No abdominal cramping. No nausea. No heartburn. No vomiting. No abdominal pain. No dysphagia. No diarrhea. No constipation. No blood in stool. MALE REPRODUCTIVE: No testicular pain. No difficulty with erection. No [place], [place] REPORT OF CONSULTATION NAME: SKYLAR RANDHAWA UNIT #: [id number] ROOM: 426 DOCTOR: MILA CHAVEZ MD BIRTHDATE: [birth year] diminished sexual drive. No penile discharge. MUSCULOSKELETAL: No back pain. No muscle pain or weakness. No neck pain. No tingling/numbness. No swelling/bruising. No osteoporosis treatment. OPHTHALMOLOGIC: No double vision. No diminished vision. No loss of vision. UROLOGIC: No dysuria. No frequent nighttime urination. No pain with urination. No difficulty urinating. No blood in urine. No frequent urination. No urinary incontinence. NEUROLOGIC: No loss of sensation in specific body area. No vertigo. No burning pain in feet. No trouble with balance. No trouble with coordination. No loss of consciousness. No loss of feeling/power. No confusion. No headache. No tingling/numbness. PSYCHOLOGIC: No tinnitus. No headaches. No shortness of breath. No weight decrease. No nausea. No vomiting. No abdominal discomfort. No constipation. No diarrhea. No depression. No anxiety. PHYSICAL EXAMINATION: GENERAL: Pleasant gentleman in no acute distress. VITAL SIGNS: Stable. He is afebrile. HEENT: Oral mucosa appears intact. The external ears are normal in appearance. Nares are patent without lesions, exudates, erythema, or inflammation. Tongue is symmetrical. Uvula is midline. NECK AND THYROID: Neck supple without palpable masses. Trachea is midline. No thyromegaly. No carotid bruit or JVD. BREASTS: Normal. Nipples unremarkable. No drainage. No lumps felt on either side. HEART: Normal S1, S2, without significant murmur, rub, or gallop. LUNGS: Clear to auscultation and percussion with good air entry bilaterally. The patient is breathing easily without the use of accessory muscles. Diaphragmatic excursions are intact. ABDOMEN: No costovertebral angle tenderness. Soft. No organomegaly or masses. Nontender. No hernias present. Liver and spleen are not palpable. LYMPHATIC: No adenopathy noted in the cervical, supraclavicular, axillary, or inguinal regions. NEUROLOGIC: Nonfocal. Oriented to person, place, and time. MENTAL STATUS: Appropriate for mood and affect. PERIPHERAL PULSES: No varicosities. Femoral and pedal pulses are palpable. EXTREMITIES: Without cyanosis, clubbing, or edema. No gross anomalies. LABORATORY DATA: White count of 3.0, hemoglobin 10.4, hematocrit 31.9, and platelet count 205,000. Glucose of 108, EGFR is 54, sodium 134, potassium 3.8, chloride 99, bicarbonate 29, and calcium 8.1. ASSESSMENT: 1. Metastatic colon cancer. 2. Mild leukopenia, probably secondary to chemotherapy. 3. Anemia of neoplastic disorder. 4. Healthcare-associated pneumonia. 5. Falls. 6. Neutropenia. [place], [place] REPORT OF CONSULTATION NAME: SKYLAR RANDHAWA UNIT #: [id number] ROOM: 426 DOCTOR: MILA CHAVEZ MD BIRTHDATE: [birth year] PLAN: Overall, he is doing much better. He will continue broad spectrum antibiotics. We will keep a close watch at this time. I expect the counts to improve. If not, then further intervention. I had a detailed discussion with the patient about it, seemed to understand it. Ample time was given to the patient to ask me questions. We will follow. Thanks for consulting and letting me participate in the care of this interesting patient. MILA CHAVEZ MD CM:CONSTR:REPORT OF CONSULTATION 0836 08/12/17 0802 interface
[2017-08-05 19:51] VITALS: BP 144/80
[2017-08-05 20:10] VITALS: BP 127/77
[2017-08-05 21:10] LABS: HEMATOCRIT 32.5 % (42.0-52.0); HEMOGLOBIN 10.5 g/dl (14.0-18.0); MEAN CELL VOLUME 88.8 fl (80.0-94.0); MEAN CORPUSCULAR HGB 28.7 pg (27.0-31.0); MEAN CORPUSCULAR HGB CONC 32.3 g/dl (33.0-37.0); MEAN PLATELET VOLUME 9.2 fl (9.6-12.3); PLATELET COUNT AUTOMATED 223 10*3/uL (130-400); RED BLOOD COUNT 3.66 10*6/uL (4.50-5.90); RED CELL DISTRI WIDTH 15.8 % (0-14.5); WHITE BLOOD COUNT 3.2 10*3/uL (4.8-10.8)
[2017-08-05 21:24] LABS: BILIRUBIN NEGATIVE (NEGATIVE); BLOOD NEGATIVE (NEGATIVE); CLARITY CLEAR (CLEAR); COLOR YELLOW (YELLOW); GLUCOSE NEGATIVE (NEGATIVE); KETONE NEGATIVE (NEGATIVE); LEUKO ESTERASE NEGATIVE (NEGATIVE); NITRITE NEGATIVE (NEGATIVE); PH 6.5 (5.0-9.0); UROBILINOGEN 0.2 E.U./dl (0.2-1.0)
[2017-08-05 21:28] LABS: ALBUMIN 2.9 gm/dl (3.1-4.5); ALKALINE PHOSPHATASE 113 U/L (45-117); BUN 31 mg/dl (7-24); CHLORIDE 99 mmol/L (98-107); CREATININE 1.41 mg/dL (0.70-1.30); LIPASE 151 U/L (73-393); POTASSIUM 5.1 mmol/L (3.5-5.1); SGOT/AST 41 IU/L (3-35); SGPT/ALT 33 U/L (12-78); SODIUM 133 mmol/L (136-145); TOTAL PROTEIN 6.7 gm/dL (6.4-8.2)
[2017-08-05 21:30] LABS: TOTAL CELLS COUNTED 100 #CELLS
[2017-08-05 21:31] LABS: PLATELET SUFFICIENCY NORMAL (NORMAL); TROPONIN I < 0.015 ng/ml (<0.045)
[2017-08-05 21:33] LABS: HYALINE CAST 0-2
[2017-08-05 21:34] LABS: BACTERIA TRACE; EPITHELIAL CELLS 0-2; MUCOUS 1+; WBC 0-2 wbc/hpf (0-5)
[2017-08-05 23:00] VITALS: BP 128/79
[2017-08-06 02:55] LABS: BASO % 0.3 % (0.0-1.0); EOS % 0.3 % (1.0-4.0); HEMATOCRIT 29.4 % (42.0-52.0); HEMOGLOBIN 9.4 g/dl (14.0-18.0); LYMPH # 0.5 10*3/uL (1.3-4.4); LYMPH % 16.5 % (27.0-41.0); MEAN CELL VOLUME 90.5 fl (80.0-94.0); MEAN CORPUSCULAR HGB 28.9 pg (27.0-31.0); MEAN PLATELET VOLUME 9.1 fl (9.6-12.3); MONO # 0.1 10*3/uL (0.1-1.0); MONO % 4.6 % (3.0-9.0); NEUT # 2.3 10*3/uL (2.3-7.9); NEUT % 77.3 % (47.0-73.0); PLATELET COUNT AUTOMATED 185 10*3/uL (130-400); RED BLOOD COUNT 3.25 10*6/uL (4.50-5.90); RED CELL DISTRI WIDTH 15.8 % (0-14.5)
[2017-08-06 03:12] LABS: ALBUMIN 2.5 gm/dl (3.1-4.5); BUN 30 mg/dl (7-24); CHLORIDE 96 mmol/L (98-107); CHOLESTEROL 106 mg/dL (<200); CREATININE 1.32 mg/dL (0.70-1.30); PHOSPHOROUS 3.1 mg/dL (2.5-4.9); POTASSIUM 4.5 mmol/L (3.5-5.1); SGOT/AST 27 IU/L (3-35); SGPT/ALT 23 U/L (12-78); SODIUM 134 mmol/L (136-145); TRIGLYCERIDES 45 mg/dl (<150); VLDL CHOLESTEROL 9 mg/dL (6-40)
[2017-08-06 03:13] LABS: ALKALINE PHOSPHATASE 89 U/L (45-117); HDL CHOLESTEROL 55 mg/dl (40-60); LDL CHOLESTEROL 42 mg/dL (9-159); TOTAL PROTEIN 5.7 gm/dL (6.4-8.2)
[2017-08-06 03:16] LABS: FREE T4 1.17 ng/dl (0.76-1.46); THYROID STIM HORMONE (HS) 0.754 uIU/ml (0.358-4.75)
[2017-08-06 07:08] LABS: VITAMIN D, 25-HYDROXY 11.1 ng/mL (30-100)
[2017-08-06 08:00] VITALS: BP 151/83
[2017-08-06] MEDS ORDERED: FOLTANX RF CAP1 EACH PO (09:12)
[2017-08-06] MEDS ORDERED: LEVOTHYROXINE50 MCG PO (09:13)
[2017-08-06] MEDS ORDERED: NEURONTIN300 MG PO (09:15)
[2017-08-06] MEDS ORDERED: DICYCLOMINE HCL10 MG PO (09:17)
[2017-08-06] MEDS ORDERED: ASPIRIN ADULT L81 M1 PO (09:18)
[2017-08-06 12:00] VITALS: BP 147/86
[2017-08-06 20:00] VITALS: BP 148/93
[2017-08-07] VITALS: BP 160/85
[2017-08-07 06:20] LABS: BASO % 0.3 % (0.0-1.0); EOS # 0.1 10*3/uL (0.0-0.4); HEMATOCRIT 33.2 % (42.0-52.0); HEMOGLOBIN 10.8 g/dl (14.0-18.0); LYMPH # 0.6 10*3/uL (1.3-4.4); LYMPH % 15.6 % (27.0-41.0); MEAN CELL VOLUME 90.2 fl (80.0-94.0); MEAN CORPUSCULAR HGB 29.3 pg (27.0-31.0); MEAN CORPUSCULAR HGB CONC 32.5 g/dl (33.0-37.0); MEAN PLATELET VOLUME 9.8 fl (9.6-12.3); MONO # 0.2 10*3/uL (0.1-1.0); MONO % 4.8 % (3.0-9.0); NEUT # 2.6 10*3/uL (2.3-7.9); NEUT % 74.2 % (47.0-73.0); PLATELET COUNT AUTOMATED 205 10*3/uL (130-400); RED BLOOD COUNT 3.68 10*6/uL (4.50-5.90); WHITE BLOOD COUNT 3.5 10*3/uL (4.8-10.8)
[2017-08-07 06:47] LABS: BUN 21 mg/dl (7-24); CHLORIDE 98 mmol/L (98-107); CREATININE 1.28 mg/dL (0.70-1.30); POTASSIUM 4.1 mmol/L (3.5-5.1); SODIUM 132 mmol/L (136-145)
[2017-08-07 07:54] VITALS: BP 137/87
[2017-08-07 16:00] VITALS: BP 108/78
[2017-08-07 20:00] VITALS: BP 141/88
[2017-08-08] VITALS: BP 152/89
[2017-08-08 07:06] LABS: BASO % 0.3 % (0.0-1.0); EOS # 0.2 10*3/uL (0.0-0.4); EOS % 6.6 % (1.0-4.0); HEMATOCRIT 31.9 % (42.0-52.0); HEMOGLOBIN 10.4 g/dl (14.0-18.0); LYMPH # 0.4 10*3/uL (1.3-4.4); LYMPH % 14.5 % (27.0-41.0); MEAN CELL VOLUME 90.4 fl (80.0-94.0); MEAN CORPUSCULAR HGB 29.5 pg (27.0-31.0); MEAN CORPUSCULAR HGB CONC 32.6 g/dl (33.0-37.0); MEAN PLATELET VOLUME 9.8 fl (9.6-12.3); MONO # 0.2 10*3/uL (0.1-1.0); MONO % 6.3 % (3.0-9.0); NEUT # 2.2 10*3/uL (2.3-7.9); NEUT % 71.6 % (47.0-73.0); PLATELET COUNT AUTOMATED 205 10*3/uL (130-400); RED BLOOD COUNT 3.53 10*6/uL (4.50-5.90); RED CELL DISTRI WIDTH 16.5 % (0-14.5)
[2017-08-08 07:29] LABS: BUN 17 mg/dl (7-24); CHLORIDE 99 mmol/L (98-107); CREATININE 1.27 mg/dL (0.70-1.30); POTASSIUM 3.8 mmol/L (3.5-5.1); SODIUM 134 mmol/L (136-145)
[2017-08-08 08:00] VITALS: BP 154/91
[2017-08-08] MEDS ORDERED: LEVAQUIN750 M1 PO (10:11)
[2017-08-08] MEDS ORDERED: Vitamin D PO (10:11)
== END 2017-08-08 11:46 | disposition home or self-care (01) | DRG 177 ==
LOC: ED 19:51 → EDHOLD 22:19 → 4E 22:19
PROVIDERS: Internal Medicine; Physician Assistant
DX: J15.6 Pneumonia due to other Gram-negative bacteria (principal); E43 Unspecified severe protein-calorie malnutrition; D84.9 Immunodeficiency, unspecified; C78.00 Secondary malignant neoplasm of unspecified lung; C78.5 Secondary malignant neoplasm of large intestine and rectum; I48.2 Chronic atrial fibrillation; D70.1 Agranulocytosis secondary to cancer chemotherapy; D70.9 Neutropenia, unspecified; G62.0 Drug-induced polyneuropathy; I48.92 Unspecified atrial flutter; I50.32 Chronic diastolic (congestive) heart failure; E87.1 Hypo-osmolality and hyponatremia; C20 Malignant neoplasm of rectum; D63.0 Anemia in neoplastic disease; D63.8 Anemia in other chronic diseases classified elsewhere; H40.9 Unspecified glaucoma; R74.0 Nonspecific elevation of levels of transaminase and lactic acid dehydrogenase [LDH]; T45.1X5A Adverse effect of antineoplastic and immunosuppressive drugs, initial encounter; R73.9 Hyperglycemia, unspecified; R80.9 Proteinuria, unspecified; N18.3 Chronic kidney disease, stage 3 (moderate); E66.8 Other obesity; R73.03 Prediabetes; E55.9 Vitamin D deficiency, unspecified; I51.7 Cardiomegaly; Z93.3 Colostomy status; Z85.038 Personal history of other malignant neoplasm of large intestine; Z83.6 Family history of other diseases of the respiratory system; Z81.2 Family history of tobacco abuse and dependence; Z80.0 Family history of malignant neoplasm of digestive organs; Y92.89 Other specified places as the place of occurrence of the external cause; Z87.891 Personal history of nicotine dependence; Z82.49 Family history of ischemic heart disease and other diseases of the circulatory system; Z79.899 Other long term (current) drug therapy; Z98.42 Cataract extraction status, left eye; Z98.41 Cataract extraction status, right eye; Z68.27 Body mass index [BMI] 27.0-27.9, adult; W18.39XA Other fall on same level, initial encounter; Y93.89 Activity, other specified; Y99.8 Other external cause status

== ENCOUNTER → 2017-08-26 | Outpatient (CLI) | payer MEDICARE, OTHER ==
[~2017-08-26] MED LIST changes: +ASPIRIN ADULT L81 M1 PO; +DICYCLOMINE HCL10 MG PO; +FOLTANX RF CAP1 EACH PO; +LEVAQUIN750 M1 PO; +LEVOTHYROXINE50 MCG PO; +NEURONTIN300 MG PO; +Vitamin D PO
[2017-08-26 07:52] LABS: EOS # 0.2 10*3/uL (0.0-0.4); EOS % 4.1 % (1.0-4.0); HEMATOCRIT 36.1 % (42.0-52.0); HEMOGLOBIN 11.1 g/dl (14.0-18.0); LYMPH # 0.9 10*3/uL (1.3-4.4); LYMPH % 21.9 % (27.0-41.0); MEAN CELL VOLUME 93.8 fl (80.0-94.0); MEAN CORPUSCULAR HGB 28.8 pg (27.0-31.0); MEAN CORPUSCULAR HGB CONC 30.7 g/dl (33.0-37.0); MEAN PLATELET VOLUME 9.8 fl (9.6-12.3); MONO # 0.3 10*3/uL (0.1-1.0); MONO % 7.7 % (3.0-9.0); NEUT # 2.7 10*3/uL (2.3-7.9); NEUT % 64.8 % (47.0-73.0); PLATELET COUNT AUTOMATED 223 10*3/uL (130-400); RED BLOOD COUNT 3.85 10*6/uL (4.50-5.90); RED CELL DISTRI WIDTH 18.5 % (0-14.5); WHITE BLOOD COUNT 4.2 10*3/uL (4.8-10.8)
[2017-08-26 08:07] LABS: ALBUMIN 3.2 gm/dl (3.1-4.5); CREATININE 1.7 mg/dL (0.70-1.30); POTASSIUM 4.7 mmol/L (3.5-5.1); TOTAL PROTEIN 6.9 gm/dL (6.4-8.2)
== END | disposition home or self-care (01) ==
LOC: LAB 03:26
PROVIDERS: Internal Medicine Hematology & Oncology
DX: C18.9 Malignant neoplasm of colon, unspecified (principal)

== ENCOUNTER 2017-09-02 15:58 | Inpatient (IN) | payer MEDICARE, OTHER ==
[~2017-09-02] VITALS: Ht 182.9 cm; Wt 87.7 kg
[2017-09-02] VITALS (8 sets, daily range): BP systolic 111–144; BP diastolic 83–97
--- NOTE | ~2017-09-02 | PR ---
[place], [place] PROGRESS NOTE NAME: SKYLAR RANDHAWA UNIT #: [id number] ROOM: 419 DOCTOR: GODWIN HOSKINS MD BIRTHDATE: [birth year] DOS: 09/05/2017 SUBJECTIVE: The patient was noted comfortable at this time without any acute distress, has not been reported any symptoms of chest pain. The patient was noted with increased oxygen requirement. The pulse ox saturation noted as 90%, this morning at rest. He had not been noted symptoms of hemoptysis or chest pain or any cough. OBJECTIVE: VITAL SIGNS: The heart rate is ranging between 117-109, blood pressure 98/60 to 133/60. temperature normal, respiratory rate 18-20. HEENT: No acute change. NECK: Supple. CARDIOVASCULAR: S1, S2 audible. LUNGS: Moderate reduction of the breath sounds noted in the lungs bilaterally. There were no crackles or wheezing. Occasional crackles in the mid portion of the lungs. ABDOMEN: Soft, nontender. EXTREMITIES: Without any acute edema. LABORATORY DATA: Chest x-ray 2 views, which was done this morning was reviewed, shows finding of congestive heart failure worsening chest x-ray compared to previous admission x-ray. BMP: BUN 33, creatinine 1.41 today was noted, potassium elevated at 5.7. CBC does count 6.5, hemoglobin 10.6, platelet count were normal. IMPRESSION: 1. Worsening of the congestive heart failure noted an increased oxygen requirement, acute kidney injury interval developed again for this patient as well. History of cancer of the rectum for the patient with metastatic nodule in the lungs. Possibility of lung mass as well along with the metastatic malignant nodules. 2. Pleural fluid. 3. Superimposed congestive heart failure, most likely diastolic dysfunction with history of atrial flutter with intermittent rapid ventricular response. PLAN OF THERAPY: Diuretic therapy would be recommended, medical management by the Cardiology Services noted in progress. Continuation of the other previous therapy, plan of management and care plan. Other supportive therapy plan to be continued previously in progress. [place], [place] PROGRESS NOTE NAME: SKYLAR RANDHAWA UNIT #: [id number] ROOM: 419 DOCTOR: GODWIN HOSKINS MD BIRTHDATE: [birth year] GODWIN CHEEMA MD CM:PNTRANS [id number] GODWIN RODRIGUEZ MD 09/06/17 0054 interface
--- NOTE | ~2017-09-02 | PR ---
[place], [place] PROGRESS NOTE NAME: SKYLAR RANDHAWA UNIT #: [id number] ROOM: 419 DOCTOR: GODWIN HOSKINS MD BIRTHDATE: [birth year] DOS: 09/06/2017 SUBJECTIVE: The patient has been noted with unresponsiveness that lasted for several hours last night as per daughter. Later on, the patient noted to be awake and reactive and communicating. He has been noted with some confusional status as well this morning. He has been getting physical therapy. The patient has not been noted with any symptoms of hemoptysis or any acute chest pain. There were no symptoms of acute shortness of breath reported. OBJECTIVE: VITAL SIGNS: For the patient which has been recorded showed normal temperature, respiratory rate 20, heart rate 90, blood pressure 113/79. The pulse oxygen saturation recorded as 91% saturation 3 L nasal cannula. HEENT: Chronic mild obesity. NECK: Supple. CARDIOVASCULAR: S1, S2 audible. LUNGS: Occasional crackles of the lungs. There is no wheezing. ABDOMEN: Soft, nontender. EXTREMITIES: Without any acute edema. LABORATORY DATA: BMP today: BUN 41, creatinine 1.78. CT scan of the head that was repeated yesterday to assess the unresponsiveness of the patient reported no acute abnormalities. Chest x-ray that was done for the patient this morning was noted with reduction of previous finding of congestive heart failure and pleural effusions. IMPRESSION: 1. Continuation of the current plan of therapy. The patient, however, has been noted with acute kidney injury with increased creatinine at this time, etiology unclear. The pleural fluid certainly was noted decreased and finding of congestive heart failure on chest x-ray. 2. Metastatic cancer from the rectum as well. 3. Unresponsiveness, etiology was unclear. PLAN OF MANAGEMENT: No changes in the plan of therapy, continuation of current therapy, plan of management as previously. Usual care, other supportive and palliative care. [place], [place] PROGRESS NOTE NAME: SKYLAR RANDHAWA UNIT #: [id number] ROOM: 419 DOCTOR: GODWIN HOSKINS MD BIRTHDATE: [birth year] GODWIN CHEEMA MD CM:PNTRANS [id number] GODWIN RODRIGUEZ MD 09/06/17 2322 interface
--- NOTE | ~2017-09-02 | CON ---
[place], [place] REPORT OF CONSULTATION NAME: [facility] [id number] UNIT #: [id number] ROOM: 419 DOCTOR: MILA CHAVEZ MD BIRTHDATE: [birth year] DOS: 09/04/2017 HISTORY OF PRESENT ILLNESS: The patient is a pleasant 82-year-old gentleman with history of metastatic colorectal cancer, presented to the Emergency Department ____ Hospital because of fatigue and confusion. As per the family, he was confused at home. The patient has history of metastatic colon cancer, getting chemotherapy and was consulted for further evaluation and management. PAST MEDICAL HISTORY: Significant for metastatic colorectal cancer, history of anemia of chronic disease, atrial fibrillation, CHF, chronic kidney disease, glaucoma, history of cardioversion, inguinal hernia, left ventricular hypertrophy, neuropathy, and prediabetic. PAST SURGICAL HISTORY: Colon resection, cardiac catheterization, cataract surgery, colonoscopy, colostomy, and varicose veins. SOCIAL HISTORY: Used to drink 6-8 beers per day, quit few years ago. No smoking. Quit smoking 40 years ago. No drug abuse. FAMILY HISTORY: Father at age 73 of colon cancer. Mother at 83 of heart disease. ALLERGIES: No allergies. MEDICATIONS: Aspirin, dicyclomine, gabapentin, hydralazine, isosorbide, ____ levothyroxine, metoprolol, ondansetron, and potassium chloride. REVIEW OF SYSTEMS CONSTITUTIONAL: No chills. No fatigue. No fever. No loss of appetite. No night sweats. No weakness. No weight loss. HEENT: No trouble swallowing. No loss of smell. No loss of hearing. No double vision. No pain. No discharge. ENT AND RESPIRATORY: No wheeze. No sore throat. No change in voice. No hearing loss. No nose bleed. No cough. No trouble breathing through nose. No shortness of breath. No coughing up blood. No epistaxis. CARDIOVASCULAR: No chest pain. No dizziness. No irregular heartbeat. No leg edema. No pain in legs while walking. No palpitations. No shortness of breath. DERMATOLOGIC: No acne. No hives. No laceration. No mole. No rash. ENDOCRINE: No cold intolerance. No diabetes. No fatigue. No hot flashes. No polydipsia. No polyuria. No urinating frequently. No weight loss. HEMATOLOGIC AND LYMPH: No fatigue. No easy bruising. GASTROENTEROLOGIC: No change in bowel habits. No indigestion. No frequent bloating. No vomiting blood. No abdominal cramping. No nausea. No heartburn. No vomiting. No abdominal pain. No dysphagia. No diarrhea. No constipation. No blood in stool. MALE REPRODUCTIVE: No testicular pain. No difficulty with erection. No diminished sexual drive. No penile discharge. MUSCULOSKELETAL: No back pain. No muscle pain or weakness. No neck pain. No tingling/numbness. No swelling/bruising. No osteoporosis treatment. [place], [place] REPORT OF CONSULTATION NAME: SKYLAR RANDHAWA UNIT #: [id number] ROOM: [facility] DOCTOR: MILA CHAVEZ MD BIRTHDATE: [birth year] OPHTHALMOLOGIC: No double vision. No diminished vision. No loss of vision. UROLOGIC: No dysuria. No frequent nighttime urination. No pain with urination. No difficulty urinating. No blood in urine. No frequent urination. No urinary incontinence. NEUROLOGIC: No loss of sensation in specific body area. No vertigo. No burning pain in feet. No trouble with balance. No trouble with coordination. No loss of consciousness. No loss of feeling/power. No confusion. No headache. No tingling/numbness. PSYCHOLOGIC: No tinnitus. No headaches. No shortness of breath. No weight decrease. No nausea. No vomiting. No abdominal discomfort. No constipation. No diarrhea. No depression. No anxiety. PHYSICAL EXAMINATION: GENERAL: Pleasant gentleman in no apparent distress. VITAL SIGNS: Stable. He is afebrile. HEENT: Oral mucosa appears intact. The external ears are normal in appearance. Nares are patent without lesions, exudates, erythema, or inflammation. Tongue is symmetrical. Uvula is midline. NECK AND THYROID: Neck supple without palpable masses. Trachea is midline. No thyromegaly. No carotid bruit or JVD. BREASTS: Normal. Nipples unremarkable. No drainage. No lumps felt on either side. HEART: Normal S1, S2, without significant murmur, rub, or gallop. LUNGS: Clear to auscultation and percussion with good air entry bilaterally. The patient is breathing easily without the use of accessory muscles. Diaphragmatic excursions are intact. ABDOMEN: No costovertebral angle tenderness. Soft. No organomegaly or masses. Nontender. No hernias present. Liver and spleen are not palpable. LYMPHATIC: No adenopathy noted in the cervical, supraclavicular, axillary, or inguinal regions. NEUROLOGIC: Nonfocal. Oriented to person, place, and time. MENTAL STATUS: Appropriate for mood and affect. PERIPHERAL PULSES: No varicosities. Femoral and pedal pulses are palpable. EXTREMITIES: Without cyanosis, clubbing, or edema. No gross anomalies. LABORATORY DATA: White count of 4.3, hemoglobin 10.7, hematocrit 34.9, and platelet count of 166,000. Sodium 131, potassium 6.6, chloride 97, bicarbonate 29, EGFR is 34. ASSESSMENT: 1. Metastatic stage IV colorectal cancer, stable. 2. Anemia of neoplastic disorder. 3. Respiratory insufficiency with hypoxia. 4. Chronic kidney disease. PLAN: Overall, he is doing better. We will keep a close watch at this. Hold chemotherapy for now. Her hemoglobin is stable at this time. If it drops further, then intervention, otherwise continues antibiotics ____. I had a detailed discussion with the patient who seemed to understand. Ample time was given to the patient to ask me questions. We will follow. [place], [place] REPORT OF CONSULTATION NAME: SKYLAR RANDHAWA UNIT #: [id number] ROOM: [facility] DOCTOR: MILA CHAVEZ MD BIRTHDATE: [birth year] Thanks for consulting and letting participate in the care of this interesting patient. MILA CHAVEZ MD CM:CONSTR:REPORT OF CONSULTATION [id number] 09/04/17 9059 interface
--- NOTE | ~2017-09-02 | PR ---
[place], [place] PROGRESS NOTE NAME: SKYLAR RANDHAWA [facility] #: [id number] UNIT #: [id number] ROOM: 419 DOCTOR: MILA CHAVEZ MD BIRTHDATE: [birth year] DOS: 09/06/2017 SUBJECTIVE: The patient is going home. He is alert and responsive. REVIEW OF SYSTEMS HEENT: No trouble swallowing. No double vision. No loss of vision. No pain. ENT AND RESPIRATORY: No wheeze. No change in voice. No cough. No shortness of breath. No coughing up blood. No epistaxis. CARDIOLOGIC: No chest pain. No dizziness. No irregular heartbeat. No leg edema. No palpitations. No shortness of breath. HEMATOLOGIC AND LYMPH: No past transfusion. No fatigue. No loss of appetite. No easy bruising. GASTROENEROLOGIC: No change in bowel habits. No vomiting blood. No abdominal cramping. No nausea. No vomiting. No diarrhea. No constipation. No blood in stool. MALE REPRODUCTIVE: No testicular pain. No penile discharge. MUSCULOSKELETAL: No back pain. No muscle pain or weakness. No tingling/numbness. UROLOGIC: No pain with urination. No difficulty urinating. No frequent urination. NEUROLOGIC: No burning pain in feet. No trouble with coordination. No loss of consciousness. No headache. No tingling/numbness. No memory loss. PHYSICAL EXAMINATION GENERAL: A pleasant gentleman in no apparent distress. VITAL SIGNS: Stable. Afebrile. HEENT: Normocephalic, atraumatic NECK AND THYROID: Supple. No JVD, thyromegaly, or lymphadenopathy. HEART: Normal S1, S2. Regular rate and rhythm. LUNGS: Clear to auscultation and percussion. ABDOMEN: Soft. Nontender, nondistended. Bowel sounds present. EXTREMITIES: Normal ROM. No clubbing. No edema. LABORATORY DATA: Reviewed. ASSESSMENT: 1. Metastatic colon carcinoma. 2. History of atrial fibrillation. 3. Metabolic encephalopathy, which is improved. 4. Respiratory failure, which is improved. PLAN: Overall, he is doing better. He will be going home today and follow as outpatient. His medications were changed, will keep a close watch at this time. Hold chemo for now until his overall condition gets better. [place], [place] PROGRESS NOTE NAME: SKYLAR RANDHAWA [place] UNIT #: [id number] ROOM: 419 DOCTOR: MILA CHAVEZ MD BIRTHDATE: [birth year] MILA CHAVEZ MD CM:ADDI [id number] MILA CHAVEZ MD 09/06/17 225 interface
--- NOTE | ~2017-09-02 | PR ---
[place], [place] PROGRESS NOTE NAME: [facility]AR RANDHAWA [facility] [id number] UNIT #: [id number] ROOM: 419 DOCTOR: DENI RODRIGUEZ MD,GODWIN BIRTHDATE: [birth year] DOS: 09/04/2017 SUBJECTIVE: He has been noted comfortable at this time, sitting on the chair this morning without any acute distress at the time of the assessment. The patient does have minimal cough. Denies symptoms of chest pain or any hemoptysis. OBJECTIVE: VITAL SIGNS: For the patient, which has been recorded showed normal temperature, respiratory rate 20, heart rate 104, blood pressure 105/69-132/98. Pulse oxygen saturation noted 2 liters 95% saturation. HEENT: No acute change. NECK: Supple. CARDIOVASCULAR: S1, S2 audible. LUNGS: Crackles are noted in the lungs. Decreased breaths in the lower portion of the lungs, greater on the right than the left side. ABDOMEN: Soft and obese. EXTREMITIES: Without any acute edema. LABORATORY DATA: BMP today was noted resolution of acute kidney injury, creatinine normal at 1.27. BUN decreased to 30. CBC, WBC count was 3.3, hemoglobin 9.5, hematocrit 31.1, platelet count of 36,000. Blood culture, no bacterial growth. IMPRESSION: The patient with tachycardia, which has been resolving at this time with improving acute kidney injury progressively. Pulmonary abnormality. Metastatic cancer of the rectum. The patient with atrial tachycardia. PLAN OF MANAGEMENT: No changes in the plan of therapy. Continue oxygen supplementation, titrate to maintain saturation 90% or greater. Monitor respiratory status closely. Repeat another chest x-ray tomorrow morning to reassess the pleural fluid. GODWIN CHEEMA MD CM:PNTRANS [id number] GODWIN RODRIGUEZ MD 09/04/172125 interface
--- NOTE | ~2017-09-02 | PR ---
[place], [place] PROGRESS NOTE NAME[id number] UNIT #: [id number] ROOM: 419 DOCTOR: MILA CHAVEZ MD BIRTHDATE: [birth year] DOS: 09/05/2017 SUBJECTIVE: The patient is doing better, awake, alert and responsive. REVIEW OF SYSTEMS HEENT: No trouble swallowing. No double vision. No loss of vision. No pain. ENT AND RESPIRATORY: No wheeze. No change in voice. No cough. No shortness of breath. No coughing up blood. No epistaxis. CARDIOLOGIC: No chest pain. No dizziness. No irregular heartbeat. No leg edema. No palpitations. No shortness of breath. HEMATOLOGIC AND LYMPH: No past transfusion. No fatigue. No loss of appetite. No easy bruising. GASTROENEROLOGIC: No change in bowel habits. No vomiting blood. No abdominal cramping. No nausea. No vomiting. No diarrhea. No constipation. No blood in stool. MALE REPRODUCTIVE: No testicular pain. No penile discharge. MUSCULOSKELETAL: No back pain. No muscle pain or weakness. No tingling/numbness. UROLOGIC: No pain with urination. No difficulty urinating. No frequent urination. NEUROLOGIC: No burning pain in feet. No trouble with coordination. No loss of consciousness. No headache. No tingling/numbness. No memory loss. PHYSICAL EXAMINATION GENERAL: A pleasant gentleman, in no apparent distress. VITAL SIGNS: Blood pressure 106/79, respirations 20, pulse 58, temperature 97.9. HEENT: Normocephalic, atraumatic NECK AND THYROID: Supple. No JVD, thyromegaly, or lymphadenopathy. HEART: Normal S1, S2. Regular rate and rhythm. LUNGS: Clear to auscultation and percussion. ABDOMEN: Soft. Nontender, nondistended. Bowel sounds present. EXTREMITIES: Normal ROM. No clubbing. No edema. LABORATORY DATA: White count 3.5, hemoglobin 10.6, hematocrit 34.9, platelet count of 169,000. Sodium 134, potassium 5.7, chloride 101, calcium 8.1. ASSESSMENT: 1. Metastatic colon cancer. 2. Anemia of neoplastic disorder. 3. Respiratory insufficiency. 4. Dehydration. 5. Leukopenia. PLAN: Overall, he is doing better now. Chemotherapy is on hold. We will wait for his overall condition to improve. If the hemoglobin and hematocrit drops, then further intervention. Now, white count is slightly low. We will keep a close watch. Discussed with the family in detail. [place], [place] PROGRESS NOTE NAME: SKYLAR RANDHAWA UNIT #: [id number] ROOM: [facility] DOCTOR: MILA CHAVEZ MD BIRTHDATE: [birth year] MILA CHAVEZ MD CM:PNTRANS [id number] MILA CHAVEZ MD 09/06/17 0252 interface
--- NOTE | ~2017-09-02 | CON ---
[place], [place] REPORT OF CONSULTATION [id number] UNIT #: [id number] ROOM: 419 DOCTOR: DENI RODRIGUEZ MDGODWIN BIRTHDATE: [birth year] DOS: 09/03/2017 PULMONARY CONSULTATION, EVALUATION AND MANAGEMENT REASON FOR CONSULTATION: Assess the patient's current acute hypoxia, increased respiratory symptoms. HISTORY OF PRESENT ILLNESS: This is an 82-year-old white male who has been noted with history of advanced cancer of the rectum for this patient, which was noted with pulmonary metastasis, has been recently admitted to the hospital, treated and discharged home for the patient for respiratory problem. The patient did develop symptoms of significant changes in mental status prior to admission to the hospital. He was also noted significant severe oxygen desaturation with oxygen saturation in the Emergency recorded 74%. The patient was also noted with symptoms of acute kidney injury. He does have symptoms of shortness of breath that occurs with exertion. He denies symptoms of coughing, chest pain or hemoptysis. The patient denies symptoms of chest trauma. He has been sitting this morning at the time of the assessment on the chair. His mentation has improved significantly as compared to the admission of yesterday. REVIEW OF SYSTEMS: CONSTITUTIONAL: Fatigue and tiredness reported without any symptoms of fever or chills. EYES: Denies any burning, redness, or tenderness. EARS, NOSE, THROAT SYMPTOMS: Denies sore throat, hoarseness, otalgia, postnasal drainage or epistaxis. CARDIOVASCULAR: Denies any edema of the lower extremities or palpitations or angina pain. GASTROINTESTINAL: Denies dysphagia, nausea, vomiting, diarrhea, abdominal pain, hematemesis, melena, or hematochezia. GENITOURINARY: There were no reported symptoms of dysuria, suprapubic pain, or urinary incontinence. MUSCULOSKELETAL: There were no joint pain reported without any deformities. CENTRAL NERVOUS SYSTEM: There were symptoms of dizziness, headache, or diplopia. Remaining systems were reviewed, they were noted all negative. Past medical history, surgical history, social history, and family history are reviewed with the patient since consultation on 08/06/2017 and remains essentially unchanged. Please review the consultation of the patient for any records assessment of my consultation on 08/06/2017, which is available in the [facility] at the present time for further review. CURRENT MEDICATIONS: Administered noted use of Lovenox 30 mg for DVT prophylaxis, metoprolol tartrate, vitamin D, aspirin, dicyclomine, gabapentin, levothyroxine, Imdur, hydralazine, Vicodin and Restoril. DRUG ALLERGIES: Noted for no known drug allergies. [place], [place] REPORT OF CONSULTATION NAME: SKYLAR RANDHAWA UNIT #: [id number] ROOM: 419 DOCTOR: DENI RODRIGUEZ MD,GODWIN BIRTHDATE: [birth year] PHYSICAL EXAMINATION: GENERAL: An 82-year-old white male who has been currently noted sitting on the chair without any acute distress or disorientation or change in mental status. Height was noted 6 feet, weight of 195 pounds, BMI 26.5. VITAL SIGNS: For the patient which were recorded showed the temperature noted as normal, respiratory rate 20-22, heart rate of 122-107 with atrial flutter. The blood pressure of the patient ranged between 140/95-129/83. Intake for the patient since admission 920 mL, output 850 mL, 930 mL, negative fluid output. The pulse oxygen saturation at 76% on room air on admission 3-1/2 liters nasal cannula with 100% saturation recorded this afternoon. HEENT: Examination shows head was atraumatic. Eyes nonicterus. NECK: Supple. CARDIOVASCULAR: S1, S2 audible. LUNGS: The patient was noted without any wheezing. Crackles noted scattered in the mid portion of the lungs. ABDOMEN: Soft, nontender. Bowel sounds present. EXTREMITIES: Without any acute edema. MUSCULOSKELETAL: The patient without any acute deformities. SKIN: Visible. No lesions or rashes. CENTRAL NERVOUS SYSTEM: The patient grossly nonfocal. Cranial nerves 2-12 for the patient was noted essentially intact. LABORATORY DATA: Labs on this patient. The CBC that was done yesterday, WBC count 4.3, hemoglobin 10.7, hematocrit 34.9, platelet count 166,000. Lactic acid noted normal at 1.2. PT/PTT were noted as normal yesterday. CMP of the patient yesterday admission, BUN 46, creatinine 1.89. Potassium 6.6. Sodium 131. CBC this morning, hemoglobin 9.8, hematocrit 32.0. WBC count decreased to 3.3. CMP this morning, BUN 40, creatinine 1.56. Potassium decreased to 5.5. Chest x-ray of the patient shows basilar area of infiltration or mass-like lesion in the lower lung for the patient, which appeared to be increased as compared to previous chest x-ray assessment and comparison during his admission in 07/2017. CT scan of the chest for the patient was noted with numerous bilateral pulmonary nodule was noted for the patient with mass lesion was noted the largest in the right lower lobe appeared to be progressive in size. It was noted with area of necrosis in those lesions for this patient was noted especially of the lower lungs and the right lower lung mass. Bilateral interval development of small pleural fluid was noted as new finding as compared with the CT scan of the chest of 08/06/2017 comparison. Images were personally reviewed for the patient from the PACS images and comparison was made. The nuclear medicine scan, the patient has a V/Q scan were noted low probability of pulmonary embolism. IMPRESSION: 1. Acute hypoxic respiratory failure in combination of multiple factors that includes pulmonary venous congestion secondary to acute kidney for the patient with bilateral pleural fluid and the progression of the current infiltration in the lungs, less likely to be pneumonia, more likely consistent with progressive lung malignancy. 2. Severe hyperkalemia for this patient was noted as a result of acute kidney injury as well. The etiology was unclear, may be related to the acute tubular [place], [place] REPORT OF CONSULTATION NAME: SKYLAR RANDHAWA UNIT #: [id number] ROOM: [facility] DOCTOR: AGUSTIN HOSKINS MDM BIRTHDATE: [birth year] necrosis for the patient and other reasons. 3. Tachycardia. The patient noted with atrial flutter. Past history of atrial fibrillation and atrial flutter, previously treated with amiodarone that has been discontinued because of several side effects recently. 4. Bilateral pleural fluid secondary to the current acute kidney injury of the patient and fluid overload would be very likely cause. 5. Hyponatremia related to current acute kidney injury as well. 6. Known history of cancer of the rectum for the patient, which has been treated with chemotherapy and noted metastatic at the present time. 7. Plan of management, agreed with the use of the hydration for this patient careful to prevent any further fluid overload. The pleural fluid of the patient noted small, would not require any thoracentesis. I do not believe that the patient needs to be started on antibiotics since the infection does not seem to be the reason of the patient's current progression of the malignancy, metastatic in the thorax originating from the rectal cancer. 8. Leukopenia and anemia, most likely related to his chemotherapy as well. 9. Overall severe debility. 10. Change in mental status secondary to all of the above. PLAN OF TREATMENT: The patient will be recommended palliative or hospice care with the current ongoing malignancy process, which has been noted progression. Detailed discussion was done with one of the patient's daughter personally. She will discuss these options with the patient and her mother to make further decision. However, the advance directive has been changed for the patient not to resuscitate the patient or any heroic measures to be taken including intubation and mechanical ventilation for the patient to be done in the event of a cardiopulmonary arrest. Supportive plan of therapy, care management and plan of care. Monitor kidney functions closely. Thank you for allowing me to participate in the care of this patient. GODWIN CHEEMA MD CM:CONSTR:REPORT OF CONSULTATION 1505 09/04/17 0157 interface
[2017-09-02 16:37] LABS: BILIRUBIN NEGATIVE (NEGATIVE); BLOOD NEGATIVE (NEGATIVE); CLARITY CLEAR (CLEAR); COLOR YELLOW (YELLOW); GLUCOSE NEGATIVE (NEGATIVE); KETONE NEGATIVE (NEGATIVE); LEUKO ESTERASE NEGATIVE (NEGATIVE); NITRITE NEGATIVE (NEGATIVE); SPECIFIC GRAVITY 1.025 (1.005-1.030); UROBILINOGEN 0.2 E.U./dl (0.2-1.0)
[2017-09-02 16:50] LABS: BACTERIA TRACE; RBC 0-2 rbc/hpf (0-2)
[2017-09-02 16:55] LABS: EOS % 0.5 % (1.0-4.0); HEMATOCRIT 34.9 % (42.0-52.0); HEMOGLOBIN 10.7 g/dl (14.0-18.0); LYMPH # 0.4 10*3/uL (1.3-4.4); LYMPH % 9.6 % (27.0-41.0); MEAN CELL VOLUME 93.1 fl (80.0-94.0); MEAN CORPUSCULAR HGB 28.5 pg (27.0-31.0); MEAN CORPUSCULAR HGB CONC 30.7 g/dl (33.0-37.0); MEAN PLATELET VOLUME 9.5 fl (9.6-12.3); MONO # 0.1 10*3/uL (0.1-1.0); MONO % 3.3 % (3.0-9.0); NEUT # 3.7 10*3/uL (2.3-7.9); NEUT % 85.7 % (47.0-73.0); NUCLEATED RED BLOOD CELL 0.5 % (0.0-0.0); PLATELET COUNT AUTOMATED 166 10*3/uL (130-400); RED BLOOD COUNT 3.75 10*6/uL (4.50-5.90); RED CELL DISTRI WIDTH 18.7 % (0-14.5); WHITE BLOOD COUNT 4.3 10*3/uL (4.8-10.8)
[2017-09-02 17:05] LABS: ACT PARTIAL THROMBO TIME 23.1 SECONDS (20.8-31.5)
[2017-09-02 17:12] LABS: ALBUMIN 3.2 gm/dl (3.1-4.5); ALKALINE PHOSPHATASE 133 U/L (45-117); BUN 46 mg/dl (7-24); CHLORIDE 97 mmol/L (98-107); CREATININE 1.89 mg/dL (0.70-1.30); LIPASE 140 U/L (73-393); SGOT/AST 37 IU/L (3-35); SGPT/ALT 68 U/L (12-78); SODIUM 131 mmol/L (136-145); TOTAL PROTEIN 6.7 gm/dL (6.4-8.2)
[2017-09-02 17:15] LABS: POTASSIUM 6.6 mmol/L (3.5-5.1); TROPONIN I < 0.015 ng/ml (<0.045)
[2017-09-03] VITALS: BP 123/89
[2017-09-03 06:39] LABS: EOS # 0.1 10*3/uL (0.0-0.4); EOS % 2.1 % (1.0-4.0); HEMOGLOBIN 9.8 g/dl (14.0-18.0); LYMPH # 0.3 10*3/uL (1.3-4.4); LYMPH % 9.2 % (27.0-41.0); MEAN CORPUSCULAR HGB 28.5 pg (27.0-31.0); MEAN CORPUSCULAR HGB CONC 30.6 g/dl (33.0-37.0); MEAN PLATELET VOLUME 9.7 fl (9.6-12.3); MONO # 0.1 10*3/uL (0.1-1.0); MONO % 3.4 % (3.0-9.0); NEUT # 2.7 10*3/uL (2.3-7.9); NEUT % 83.2 % (47.0-73.0); PLATELET COUNT AUTOMATED 131 10*3/uL (130-400); RED BLOOD COUNT 3.44 10*6/uL (4.50-5.90); RED CELL DISTRI WIDTH 18.6 % (0-14.5); WHITE BLOOD COUNT 3.3 10*3/uL (4.8-10.8)
[2017-09-03 06:55] LABS: ALBUMIN 2.7 gm/dl (3.1-4.5); CREATININE 1.56 mg/dL (0.70-1.30); PHOSPHOROUS 3.1 mg/dL (2.5-4.9); TOTAL PROTEIN 5.9 gm/dL (6.4-8.2)
[2017-09-03 07:00] LABS: POTASSIUM 5.5 mmol/L (3.5-5.1)
[2017-09-03 08:00] VITALS: BP 132/84
[2017-09-03 12:00] VITALS: BP 140/95
[2017-09-03 16:00] VITALS: BP 116/79
[2017-09-03 20:00] VITALS: BP 124/80
[2017-09-04] VITALS: BP 119/60
[2017-09-04 06:14] LABS: EOS # 0.1 10*3/uL (0.0-0.4); EOS % 3.4 % (1.0-4.0); HEMATOCRIT 31.1 % (42.0-52.0); HEMOGLOBIN 9.5 g/dl (14.0-18.0); LYMPH # 0.4 10*3/uL (1.3-4.4); LYMPH % 12.8 % (27.0-41.0); MEAN CELL VOLUME 92.8 fl (80.0-94.0); MEAN CORPUSCULAR HGB 28.4 pg (27.0-31.0); MEAN CORPUSCULAR HGB CONC 30.5 g/dl (33.0-37.0); MEAN PLATELET VOLUME 10.2 fl (9.6-12.3); MONO # 0.2 10*3/uL (0.1-1.0); MONO % 5.5 % (3.0-9.0); NEUT # 2.5 10*3/uL (2.3-7.9); NEUT % 77.1 % (47.0-73.0); NUCLEATED RED BLOOD CELL 0.6 % (0.0-0.0); PLATELET COUNT AUTOMATED 136 10*3/uL (130-400); RED BLOOD COUNT 3.35 10*6/uL (4.50-5.90); RED CELL DISTRI WIDTH 18.4 % (0-14.5); WHITE BLOOD COUNT 3.3 10*3/uL (4.8-10.8)
[2017-09-04 06:37] LABS: CHLORIDE 101 mmol/L (98-107); CREATININE 1.27 mg/dL (0.70-1.30); SODIUM 137 mmol/L (136-145)
[2017-09-04 06:38] LABS: BUN 30 mg/dl (7-24)
[2017-09-04 08:00] VITALS: BP 132/98
[2017-09-04 12:00] VITALS: BP 105/69
[2017-09-04 16:00] VITALS: BP 108/68
[2017-09-04 20:00] VITALS: BP 133/60
[2017-09-05] VITALS: BP 98/60
[2017-09-05 06:47] LABS: BASO % 0.3 % (0.0-1.0); HEMATOCRIT 34.9 % (42.0-52.0); HEMOGLOBIN 10.6 g/dl (14.0-18.0); LYMPH # 0.4 10*3/uL (1.3-4.4); MEAN CELL VOLUME 93.3 fl (80.0-94.0); MEAN CORPUSCULAR HGB 28.3 pg (27.0-31.0); MEAN CORPUSCULAR HGB CONC 30.4 g/dl (33.0-37.0); MEAN PLATELET VOLUME 10.8 fl (9.6-12.3); MONO # 0.3 10*3/uL (0.1-1.0); MONO % 8.5 % (3.0-9.0); NEUT # 2.7 10*3/uL (2.3-7.9); NEUT % 77.5 % (47.0-73.0); NUCLEATED RED BLOOD CELL 0.6 % (0.0-0.0); PLATELET COUNT AUTOMATED 169 10*3/uL (130-400); RED BLOOD COUNT 3.74 10*6/uL (4.50-5.90); RED CELL DISTRI WIDTH 19.2 % (0-14.5); WHITE BLOOD COUNT 3.5 10*3/uL (4.8-10.8)
[2017-09-05 07:08] LABS: CREATININE 1.41 mg/dL (0.70-1.30); POTASSIUM 5.7 mmol/L (3.5-5.1)
[2017-09-05 08:00] VITALS: BP 106/79
[2017-09-05 12:00] VITALS: BP 103/73
[2017-09-05 16:00] VITALS: BP 116/77
[2017-09-05 18:52] LABS: ABG BASE EXCESS 1.8 mmol/L (-2.0-2.0); ABG HCO3 29.5 mmol/l (22-26); ABG O2 SATURATION 92.1 % (95-97); ARTERIAL BLOOD GAS PCO2 68.6 mmHg (35-45); ARTERIAL BLOOD GAS PH 7.257 (7.35-7.45); ARTERIAL BLOOD GAS PO2 74.4 mmHg (80-90)
[2017-09-05 18:59] LABS: BASO % 0.4 % (0.0-1.0); EOS % 1.1 % (1.0-4.0); HEMATOCRIT 31.4 % (42.0-52.0); HEMOGLOBIN 9.6 g/dl (14.0-18.0); LYMPH # 0.5 10*3/uL (1.3-4.4); LYMPH % 18.6 % (27.0-41.0); MEAN CORPUSCULAR HGB 28.7 pg (27.0-31.0); MEAN CORPUSCULAR HGB CONC 30.6 g/dl (33.0-37.0); MEAN PLATELET VOLUME 9.5 fl (9.6-12.3); MONO # 0.3 10*3/uL (0.1-1.0); MONO % 10.2 % (3.0-9.0); NEUT # 1.8 10*3/uL (2.3-7.9); NEUT % 68.9 % (47.0-73.0); PLATELET COUNT AUTOMATED 128 10*3/uL (130-400); RED BLOOD COUNT 3.34 10*6/uL (4.50-5.90); RED CELL DISTRI WIDTH 19.1 % (0-14.5); WHITE BLOOD COUNT 2.6 10*3/uL (4.8-10.8)
[2017-09-05 19:34] LABS: ALBUMIN 2.6 gm/dl (3.1-4.5); CREATININE 1.69 mg/dL (0.70-1.30); PHOSPHOROUS 4.1 mg/dL (2.5-4.9); POTASSIUM 5.3 mmol/L (3.5-5.1); TOTAL PROTEIN 6.1 gm/dL (6.4-8.2)
[2017-09-05 19:37] LABS: TROPONIN I 0.06 ng/ml (<0.045)
[2017-09-05 20:00] VITALS: BP 184/90
[2017-09-06] VITALS: BP 100/63
[2017-09-06 07:07] LABS: CREATININE 1.78 mg/dL (0.70-1.30)
[2017-09-06 08:00] VITALS: BP 113/79
[2017-09-06] MEDS ORDERED: DILTIAZEM CD240 MG PO (12:33)
== END 2017-09-06 14:08 | disposition hospice, home (50) | DRG 682 ==
LOC: ED 15:58 → EDHOLD 17:41 → 4E 17:41
PROVIDERS: Emergency Medicine; Internal Medicine; Student in an Organized Health Care Education/Training Program
DX: N17.0 Acute kidney failure with tubular necrosis (principal); J96.01 Acute respiratory failure with hypoxia; G93.41 Metabolic encephalopathy; C78.00 Secondary malignant neoplasm of unspecified lung; E87.5 Hyperkalemia; E83.41 Hypermagnesemia; E87.8 Other disorders of electrolyte and fluid balance, not elsewhere classified; G62.9 Polyneuropathy, unspecified; E87.1 Hypo-osmolality and hyponatremia; I27.20 Pulmonary hypertension, unspecified; I47.1 Supraventricular tachycardia; I48.92 Unspecified atrial flutter; G45.9 Transient cerebral ischemic attack, unspecified; I50.32 Chronic diastolic (congestive) heart failure; C20 Malignant neoplasm of rectum; R65.10 Systemic inflammatory response syndrome (SIRS) of non-infectious origin without acute organ dysfunction; I48.0 Paroxysmal atrial fibrillation; E86.0 Dehydration; D63.8 Anemia in other chronic diseases classified elsewhere; D72.810 Lymphocytopenia; D72.819 Decreased white blood cell count, unspecified; D72.9 Disorder of white blood cells, unspecified; R74.0 Nonspecific elevation of levels of transaminase and lactic acid dehydrogenase [LDH]; N18.9 Chronic kidney disease, unspecified; H40.9 Unspecified glaucoma; D63.0 Anemia in neoplastic disease; R91.1 Solitary pulmonary nodule; E55.9 Vitamin D deficiency, unspecified; K40.90 Unilateral inguinal hernia, without obstruction or gangrene, not specified as recurrent; N18.3 Chronic kidney disease, stage 3 (moderate); Z93.3 Colostomy status; Z87.891 Personal history of nicotine dependence; Z80.0 Family history of malignant neoplasm of digestive organs; Z82.49 Family history of ischemic heart disease and other diseases of the circulatory system; Z83.6 Family history of other diseases of the respiratory system; Z79.82 Long term (current) use of aspirin; Z79.899 Other long term (current) drug therapy; Z92.21 Personal history of antineoplastic chemotherapy; Z98.49 Cataract extraction status, unspecified eye; Z90.49 Acquired absence of other specified parts of digestive tract; I34.0 Nonrheumatic mitral (valve) insufficiency; I07.1 Rheumatic tricuspid insufficiency; Z51.5 Encounter for palliative care; Z66 Do not resuscitate